=== PATIENT | male | born 1970 | race Caucasian/White ===

== ENCOUNTER 2024-09-13 13:08 | Inpatient (IN) | payer MEDICAID ==
[~2024-09-13] VITALS: Ht 170.2 cm; Wt 80.6 kg
[2024-09-13] MEDS ORDERED: mag hydrox/Alum hydrox/simeth 30ml oral suspension PO PRN (13:50)
[2024-09-13] MEDS ORDERED: loperamide 2mg capsule PO PRN (13:50)
[2024-09-13 16:39] VITALS: RESP 14
[2024-09-13 19:30] VITALS: RESP 16; O2SAT 97
[2024-09-13 20:00] VITALS: BP 127/89; PULSE 101; RESP 16; TEMP 97.2; O2SAT 97
[2024-09-13] MEDS ORDERED: BUPR-94 PO (20:25)
[2024-09-13] MEDS ORDERED: PARO30TA97 PO (20:25)
[2024-09-13] MEDS ORDERED: RISP3TAB11 PO (20:25)
[2024-09-13] MEDS ORDERED: BENZ1TAB97 PO (20:25)
[2024-09-13] MEDS ORDERED: DIVA500T2 PO (20:25)
[2024-09-13] MEDS ORDERED: divalproex sodium 500mg tablet.DR PO SCH (21:42)
[2024-09-13] MEDS: benztropine 1mg tablet PO SCH (22:15)
[2024-09-13] MEDS: divalproex sod 250mg ER (24-hour) tablet PO SCH (22:22)
[2024-09-14 07:00] VITALS: RESP 16; O2SAT 98
[2024-09-14 07:53] VITALS: BP 128/66; PULSE 72; RESP 16; TEMP 97; O2SAT 98
[2024-09-14 07:55] LABS: MEAN PLATELET VOLUME 8.6 FL (7.4-10.4); RED CELL DISTRIBUTION WIDTH 13.5 % (11.5-14.5)
[2024-09-14 08:24] LABS: CHOL/HDL RATIO 3.0 (0.00-4.99); CREATININE 0.92 MG/DL (0.60-1.10); LDL CHOLESTEROL 81 MG/DL (50-100); TOTAL CARBON DIOXIDE 32.1 MMOL/L (24-32); VALPROATE 31 UG/ML (50-100); eCRCL 84 ML/MIN; eGFR 85 ML/MIN
[2024-09-14] MEDS: lactose-reduced food (Ensure Enlive) - 237ml bottle PO SCH (13:39)
--- NOTE | 2024-09-14 15:12 | HISTORY AND PHYSICAL ---
MH History & Physical - Blank History and Physical CHIEF COMPLIANT GRAVELY DISABILITY HISTORY OF PRESENT ILLNESS 54-year-old presenting with auditory and visual hallucinations. Placed on a 5150 for gravely disabled. BIB by brother due to intermittent confusion and suicidal ideations. History of bipolar, anxiety, and depression. Per patient he has been having hallucinations for the past six months. Brother states that it might be due to his recent change on medications. CHART REVIEW Pt is admitted on a 5150 for GD after he was brought into the ED to be evaluated after experiencing experiencing confusion and has not been able to take care of his basic needs such as showering or eating because of this. Denny is unable to state where he could find or obtain food and has lost 8lbs in less than a week.Pt is currently living with his brother and mother in [place]. Pt is on disability and receives around $800.00 per month on SSI. The pt denies having a significant other or children. The pt has a doctor that he sees at [facility] and will f/u with that provider upon discharge. Spoke with Jean Paul, pt's brother, at the request of pt. Jean Paul states that the pt has a history of Bipolar d/o and has experienced a significant increase in mh sx since a medication change in July. Jean Paul states that his brother has basically been catatonic over the last couple of weeks and stopped eating about one week ago. Jean Paul is concerned that the pt may have an underlying health issue and that he was recently referred to for a neuro consult and MRI. Pt appears to have a positive support system and care team. Pt will have these supports as well upon discharge. The pt is a poor historian, this travel writer was unable to obtain much information, however he does appreciate his brother, Jean Paul being able to share information and speak with staff about his symptoms. ASSESSMENT The patient was interviewed in observation room. The patient was actively sitting. The patient endorses "okay." I feel depressed all the time. I can come up with something sometimes to a new myself but I preferred to lay in the bed all the time." "I just be has a bad thoughts and feeling uncomfortable around other people I really have not getting the hang of it." "Yes, I want to ." Patient denies a plan. Denies HI. "I hear band music that started when I was 13 years old." The patient endorses food intake. The patient is stable no acute distress noted. The patient is anxious, disorganized, psychotic with auditory hallucination. Per staff report patient is medication compliant. Per staff report no abnormal behaviors. Will continue daily assessment and adjusting treatment as needed. Closely monitor behavior and response to medication during hospitalization. Discussed treatment plan with patient. ASE/risks and benefits of chosen treatment. He verbalized understanding and consented to treatment. REVIEW OF LABS URINALYSIS NEGATIVE COVID NEGATIVE URINE TOX SCREEN NEGATIVE WBC 4.8 RBC 4.28 HEMOGLOBIN 13.3 HEMATOCRIT 39.4 PLATELET COUNT 127 SODIUM 143 POTASSIUM 3.3 CHLORIDE 104 ANION GAP 7 BUN 7 CREATININE 0.92 eGFR 85 CALCIUM 89.2 ALBUMIN 3.1 TRIGLYCERIDES 71 CHOLESTEROL 155 HDL 52 LDL 81 MENTAL STATUS EXAM APPEARANCE: DISHEVELED. SOILED WEARING GREEN SCRUBS. TALL OBESE MALE. WEARING GLASSES. FULL FACIAL HAIR.LIGHT BROWN HAIR. SPEECH: CIRCUMSTANTIAL, TANGENTIAL EYE CONTACT: NORMAL AFFECT: FLAT MOOD: DEPRESSED, ANXIOUS ORIENTATION IMPAIRMENT: NONE MEMORY IMPAIRMENT: NONE ATTENTION: FULL HALLUCINATIONS: AUDITORY SUICIDALITY: NONE DELUSIONS: PARANOID BEHAVIOR: COOPERATIVE JUDGMENT: POOR INSIGHT: POOR TREATMENT DEPAKOTE ER 500 MG P.O. Q.H.S. PAXIL 60 MG P.O. Q.H.S. RISPERIDONE 3 MG P.O. B.I.D. TRAZODONE 50 MG P.O.Q.H.S. PRN BENZTROPINE 1 MG P.O. B.I.D. THORAZINE 50 MG P.O. Q.6 PRN BENADRYL 50 MG P.O. Q.6 PRN D/C WELLBUTRIN 450 MG P.O. DAILY BY ADMITTING PROVIDER Monitoring by Staff, Milieu, Group, and Individual counseling as needed -- According to the [place] Suicide Assessment the above named patient is on LOS. [id number]-Patient is unable to formulate a plan to safely meet their basic needs of food, clothing, and assisted due to the severity of their mental illness. We are still titrating medications to an effective dose while maintaining a therapeutic environment to prevent decompensation and readmission. Total time spent 120 minutes REVIEW OF Clinical notes [X ] RN notes [X] PCT documentation [X] SW notes Labs [ X] Medications [X] Care trends/care activity [X] Vitals [X] DISCUSSION WITH beef splitter [X] Staff SW [X] Treatment Team [X] DISCHARGE UNSURE AT THIS TIME. DISCHARGE BACK TO HOME WITH HIS BROTHER. Past Psychiatric History Past Psychiatric History THE PATIENT UNABLE TO ANSWER Past Medical History Past Medical History THE PATIENT UNABLE TO ANSWER Past Surgical History Past Surgical History THE PATIENT UNABLE TO ANSWER Past Family History Patient History: FH: kidney disease GRANDFATHER OR GRANDMOTHER (Paternal side of family) Substance Abuse History Substance Abuse History THE PATIENT UNABLE TO ANSWER Personal History Current Living Situation THE PATIENT UNABLE TO ANSWER Marital & Relationship History THE PATIENT UNABLE TO ANSWER Sexual History THE PATIENT UNABLE TO ANSWER Occupational History THE PATIENT UNABLE TO ANSWER Social Activity THE PATIENT UNABLE TO ANSWER Restorationism THE PATIENT UNABLE TO ANSWER Legal History THE PATIENT UNABLE TO ANSWER History THE PATIENT UNABLE TO ANSWER Developmental History Childhood THE PATIENT UNABLE TO ANSWER Assessment/Plan Problems/Diagnosis: (1) Psychosis (2) Mood disorder CODING VISIT-PSYCHIATRY Date of Service: Sep 14, 2024 Billing Provider: HEMA SMITH APRN Psych Common Visit Codes: [id number] INP/OBS CARE (High) Problem Qualifiers (1) Psychosis: HEMA SMITH APRN Sep 14, 2024 15:12
--- NOTE | 2024-09-14 18:52 | HISTORY AND PHYSICAL-Residence ---
History & Physical Providers to Resident Creating Document: RADAMES MARION JOHSUA CHAVEZ History of Present Illness Primary Medical Doctor: No primary care provider Reason for Admit\Complaint: Gravely Disability History of Present Illness Patient is a very poor historian. He is a 54-year-old male past medical history of bipolar disorder, anxiety, depression placed on 5150 hold due to grave disability. The patient states that he has been having hallucinations in the past six months. He denied any other concerns or complaints but reports that he was not comfortable in his previous living conditions and is very comfortable currently in the facility. The patient denied any chest pain, shortness of breath, nausea, vomiting, abdominal pain, constipation, diarrhea, dizziness or syncope. He reports that he has been eating and drinking well since he has been in the hospital. He also was requesting for his brother to be present with him in the hospital. Allergies: Coded Allergies: moxifloxacin (Verified Allergy, Unknown, 09/13/24) Home Medications Home Medications Active Reported Risperdal (Risperidone) 3 Mg Tablet 1 Tab PO BID Paxil (Paroxetine HCl) 30 Mg Tablet 2 Tab PO HS Depakote (Divalproex Sodium) 500 Mg Tablet.dr 500 Mg PO HS Cogentin* (Benztropine Mesylate) 1 Mg Tablet 1 Mg PO BID Past Medical History Past Medical History Bipolar, Anxiety Depression Past Surgical History Surgical History Comment Denies any past surgical history Family History Family History: FH: kidney disease GRANDFATHER OR GRANDMOTHER (Paternal side of family) Past Social History Social History Comment Denies smoking tobacco, drinking alcohol or abusing any other recreational drug ROS ROS Constitutional: No fever, weakness. Denied any recent weight loss. HEENT: No blurring of the vision, No sore throat, epistaxis, tinnitus Cardiovascular: No chest pain/discomfort, palpitations, syncope. No pedal edema Respiratory: No sob, no cough,No hemoptysis Gastrointestinal: No abdominal pain, nausea, vomiting. No diarrhea, constipation, melena. Genitourinary: No frquency, urgency, incontinence, nocturia. No dysuria, hematuria Endocrine: No , polydipsia, polyuria. No heat or cold intolerance Neurologic: No headache, vertigo. No weakness, numbness or tingling of extremities Musculoskeletal: No arthralgias or myalgias Psychiatric: Has been mentioned in HPI. Hematologic: No bleeding or bruises Exam Vitals: Vital Signs Date Time Temp Pulse Resp B/P (MAP) Pulse Ox O2 Delivery O2 Flow Rate FiO2 09/14/24 07:53 97.0 72 16 128/66 (86) 98 09/14/24 07:00 Room Air General: General: Awake , Alert, Oriented, tall obese man,no acute distress Head: Normocephalic with an atraumatic Eyes: Pupils- 3mm, reacting to light, conjunctiva- anicteric Nose and throat: No polyps, septum- normal, no mucosal ulcers Neck: Supple, no lymphadenopathy, no carotid bruit, no raise JVP Respiratory: No use of accessory muscles of respiration, Bilateral normal breath sounds heard. No wheeze, rhochi or creps Cardiac: S1-S2 heard, rythm regular. Abdomen: soft, Bowel sounds heard, No organomegaly. Extremities: no clubbing,no cyanosis, no deformities, peripheral pulses- 2+ Skin: warm and dry Neuro: No focal deficit, gross cranial nerve exam- normal Psychiatry: Depressed, anxious mood , Tagential speech, Poor judgement. Diagnostic Data Last Recorded Lab Results: 09/14/24 0710 09/14/24 0710 Advance Care Planning Advanced Care planning: N/A Additional Plan Auditory and visual hallucination Grave disability History of bipolar disorder continue management as per the psychiatrist. Hypokalemia The patient's potassium is 3.3. Replacing potassium. Monitor the patient's electrolytes. The patient currently does not have any acute medical concerns or complaints. The hospitalist team we will continue to follow the patient during the course of hospitalization. Radames Marion MD Internal Medicine Resident, PGY 1 Date of Service: Sep 14, 2024 Billing Provider: ROCIO PALMER MD Common Visit Codes: [id number] INP/OBS CARE (MOD) RADAMES MARION, RES Sep 14, 2024 18:52 ROCIO PALMER MD Oct 11, 2024 20:37
[2024-09-14 19:48] VITALS: RESP 18; O2SAT 96
[2024-09-14 20:00] VITALS: BP 119/76; PULSE 88; RESP 18; TEMP 97.2; O2SAT 96
[2024-09-15 07:00] VITALS: RESP 16; O2SAT 97
[2024-09-15] MEDS ORDERED: potassium Cl 20 mEq SR tablet PO ONE (07:05)
[2024-09-15] MEDS ORDERED: potassium Cl 20 mEq SR tablet PO STA (07:23)
[2024-09-15 08:33] VITALS: BP 120/74; PULSE 79; RESP 16; TEMP 98; O2SAT 97
[2024-09-15] MEDS: potassium Cl 20 mEq SR tablet PO STA (09:56)
--- NOTE | 2024-09-15 11:32 | PROGRESS NOTE ---
Progress Note Dictate Providers to CC ~ Central Line/PICC still needed: N\A Antibiotic Ordered?: No Objective Vitals Vital Signs Date Time Temp Pulse Resp B/P (MAP) Pulse Ox O2 Delivery O2 Flow Rate FiO2 09/15/24 08:33 98.0 79 16 120/74 (89) 97 Room Air Lab Results: 09/14/24 0710 09/15/24 0901 Problem\Assessment\Plan Problems/Diagnosis: (1) Psychosis (2) Catatonia (3) Mood disorder Psychiatrist's Progress Note Date of Service: Sep 15, 2024 Notes Denny Koenig is a 54-year-old male with a history of bipolar, anxiety, and depression was BIB his brother to [facility] ED with auditory and visual hallucinations, intermittent confusion and SI. He was placed on a 5150 for gravely disabled. Per patient he has been having hallucinations for the past six months. Brother states that it might be due to his recent change on medications. CHART REVIEW Pt is admitted on a 5150 for GD after he was brought into the ED to be evaluated after experiencing experiencing confusion and has not been able to take care of his basic needs such as showering or eating because of this. Denny is unable to state where he could find or obtain food and has lost 8lbs in less than a week. Denny is a an overweight male of average height. He wears glasses and has short disheveled brown hair with full graying facial hair. He is soft spoken and have to have him repeat himself frequently. He is really pleasant and we got him up to a chair. He is not able to sit up on his own. Falls backwards. He initially says he is not hungry for lunch, but then once I have him up in a chair he is willing to eat. He needs assistance from staff. He is disorganized, nonsensical and tangential. He says random thing. 'I feel like I will be a part of an payal soon.' and says something about 'riding a bicycle' and 'taking psyllium mushrooms'. He says he is having AH. 'low murmur of music' then says something randomly and tangential. 'Always keeps it's weapon... see two hands clapping?' then he puts his hands together to clap in a disjointed way. He does say he is here because - He says that when he was home he had not slept for over a week, Now he's sleeping too much. He is unable to tell me when or where he is. He knows who he is. He says randomly 'I have a fear of dogs but why would I be afraid right now-- there's no dogs in here?' Mental Status Eye contact: Poor; Behavior: Cooperative. Confused. Speech: Soft, disorganized. Mood: Pleasant and cooperative, confused. Affect: Flat. Thought process: Significantly disorganized, Circumstantial/Tangential, Seems to be experiencing some Delusions. Mild Paranoid thinking. Thought Content: disorganized. nonsensical. Cognition: A&O X1 to self; Insight: Poor; Judgment: Poor; SI Denies /HI Denies, AH Possibly. Says hearing music, mumbling/VH Possibly. Body stiff and unable to sit up straight without falling backwards. Shuffle gait with transferring. Results Of any Diagn. Testing REVIEW OF LABS URINALYSIS NEGATIVE COVID NEGATIVE URINE TOX SCREEN NEGATIVE WBC 6.52 RBC 3.55 HEMOGLOBIN 11.9 HEMATOCRIT 37.2 PLATELET COUNT 213 SODIUM 129 POTASSIUM 5.0 CHLORIDE 97 ANION GAP 13 BUN 27 CREATININE 0.85 eGFR 97 CALCIUM 8.0 ALBUMIN 3.5 TSH 0.86 Treatment Reviewed the medication requisition-- It looks like he recently was started on Cogentin after an increase of Risperdal and Seroquel reinstated. Looks like patient's meds changed as follows. 2024- Risperdal 2mg +3mg HS, Seroquel ER 300mg two hs, Wellbutrin XL 450mg daily, Paxil 40mg daily. Depakote DR 500mg 3 po hs. March- Risperdal increased 3mg 2 po hs, Other meds same. April- Seroquel ER 200mg hs then became inactive. and Possibly Risperdal 3mg ONE HS? June- INCREASE Risperdal 3mg 2 HS July 12- INCREASE Paxil 30mg TWO Daily. by 08/01- DECREASE Paxil back to 40mg daily... August 07 Cogentin 1mg BID added. and Seroquel ER 200mg Restarted. On 09/01 Paxil 40mg daily ordered as well as on 09/06 Paxil 30mg TWO daily ordered... (Either a change or an error and patient got both prescriptions of Paxil) Then it looks like He may have become more depressed because his Paxil was increased or more of it was taken than he should have had with having two different prescriptions of PAXIL. Which could have made him Manic and not sleep for a week. Patient looks like he could be having some catatonia. I'll make the Ativan a give order. And make med changes as follows.Amantadine ordered to help with the parkinsonion picture which is also indicated with catatonia... INCREASE DEPAKOTE ER 1000 MG P.O. Q.H.S. (was on 1500mg DR) ER tablets have 10%20% less fluctuation in serum concentration than delayed-release (DR) tablets. Divalproex sodium ER and DR tablets are not bioequivalent; increase total daily dose by 10%20% if switching from DR to ER ATIVAN 2 MG P.O. Q.8 PRN DECREASE PAXIL30 MG P.O. Q.H.S. DECREASE RISPERIDONE 4 MG P.O. HS D/C BENZTROPINE 1 MG P.O. B.I.D. TRAZODONE 50 MG P.O. THORAZINE 50 MG P.O. Q.6 PRN BENADRYL 50 MG P.O. Q.6 PRN D/C WELLBUTRIN 450 MG P.O. DAILY on admission Monitoring by Staff, Milieu, Group, and Individual counseling as needed -- According to the [place] Suicide Assessment the above named patient is on LOS. 5250- HOLD -GD- Patient is unable to formulate a plan to safely meet their basic needs of food, clothing, and mcfp due to the severity of their mental illness. We are still titrating medications to an effective dose while maintaining a therapeutic environment to prevent decompensation and readmission. DISCHARGE UNSURE AT THIS TIME. DISCHARGE BACK TO HOME REVIEW OF Clinical notes [X ] RN notes [X] PCT documentation [X] SW notes Labs [ X] Medications [X] Care trends/care activity [X] Vitals [X] DISCUSSION WITH rotor plate washer [X] CODING VISIT-PSYCHIATRY Date of Service: Sep 15, 2024 Billing Provider: ESE RAGSDALE Psych Common Visit Codes: [id number] INP/OBS CARE(High) Problem Qualifiers (1) Psychosis: ESE RAGSDALE Sep 15, 2024 11:32
[2024-09-15 19:00] VITALS: RESP 19; O2SAT 94
[2024-09-15 20:00] VITALS: BP 109/61; PULSE 80; RESP 19; TEMP 90.1; TEMP 98.1; O2SAT 94
[2024-09-15] MEDS: divalproex sod 250mg ER (24-hour) tablet PO SCH (21:15)
[2024-09-16 07:30] VITALS: BP 110/64; PULSE 72; RESP 16; TEMP 96.7; O2SAT 97
[2024-09-16 08:00] VITALS: RESP 19; O2SAT 97
--- NOTE | 2024-09-16 13:25 | PROGRESS NOTE ---
Progress Note Dictate Providers to CC ~ Central Line/PICC still needed: N\A Antibiotic Ordered?: No Objective Vitals Vital Signs Date Time Temp Pulse Resp B/P (MAP) Pulse Ox O2 Delivery O2 Flow Rate FiO2 09/16/24 08:00 19 97 Room Air 09/16/24 07:30 96.7 72 110/64 (79) Lab Results: 09/14/24 0710 09/15/24 0901 Problem\Assessment\Plan Problems/Diagnosis: (1) Psychosis (2) Catatonia (3) Mood disorder Psychiatrist's Progress Note Date of Service: Sep 16, 2024 Notes Denny Koenig is a 54-year-old male with a history of bipolar, anxiety, and depression was BIB his brother to [facility] ED with auditory and visual hallucinations, intermittent confusion and SI. He was placed on a 5150 for gravely disabled. Per patient he has been having hallucinations for the past six months. Brother states that it might be due to his recent change on medications. CHART REVIEW Pt is admitted on a 5150 for GD after he was brought into the ED to be evaluated after experiencing experiencing confusion and has not been able to take care of his basic needs such as showering or eating because of this. Denny is unable to state where he could find or obtain food and has lost 8lbs in less than a week. The pt is a poor historian, this insurance underwriter was unable to obtain much information, however he does appreciate his brother, Jean Paul being able to share information and speak with staff about his symptoms. Up in chair. Still a bit sedated. Jerking a bit. 'worn out.' Slow. He did eat dinner. Trying to take off his shirt. Picking at shirt- Stereotypy. 'took a lot of redirection with dinner and being fed,' per staff. Little bit more alert but still sedated. He did speak a little bit but it is still disorganized and nonsensical. 'I want to be a better Cheondoism'. Mental Status Eye contact: Poor; Behavior: Cooperative. Confused. Speech: Soft, disorganized. Mood: Pleasant and cooperative, confused. Affect: Flat. Thought process: Significantly disorganized, Circumstantial/Tangential, Did not express Paranoid or Delusional thinking. Thought Content: disorganized. nonsensical. Cognition: A&O X1 to self; Insight: Poor; Judgment: Poor; SI Denies /HI Denies, AH Possibly. Says hearing music, mumbling/VH Possibly. Body stiff and unable to sit up straight without falling backwards. Taking two people to transfer. Results Of any Diagn. Testing REVIEW OF LABS URINALYSIS NEGATIVE COVID NEGATIVE URINE TOX SCREEN NEGATIVE WBC 6.52 RBC 3.55 HEMOGLOBIN 11.9 HEMATOCRIT 37.2 PLATELET COUNT 213 SODIUM 129 POTASSIUM 5.0 CHLORIDE 97 ANION GAP 13 BUN 27 CREATININE 0.85 eGFR 97 CALCIUM 8.0 ALBUMIN 3.5 TSH 0.86 Treatment Patient did well in the AM after dose of Ativan 2mg and Amantadine. Up to breakfast and visiting. He started to become more sedated and somnolent as the day went on. RN held his medications in afternoon d/t sedation. He was given a trial of Ativan 1mg which did in fact help him to become more awake and aroused. Able to converse a little but still held eyes closed. It seems perhaps the Amantadine made him more sedated? I will work to decrease medications. ADD Ativan 1mg Q4hr as I do believe it looks like he is having catatonic symptoms. He should get an Head MRI just in case. Some report of possible fall at home? We will do some labs checking kidney fx, infection and ammonia levels. Decrease back to DEPAKOTE ER 500 MG P.O. Q.H.S. ATIVAN 1 MG P.O. Q.4 PRN PAXIL 30 MG P.O. Q.H.S. RISPERIDONE 2 MG P.O. B.I.D. TRAZODONE 50 MG P.O.PRN THORAZINE 50 MG P.O. Q.6 PRN BENADRYL 50 MG P.O. Q.6 PRN Monitoring by Staff, Milieu, Group, and Individual counseling as needed -- According to the [place] Suicide Assessment the above named patient is on LOS. [id number]-Patient is unable to formulate a plan to safely meet their basic needs of food, clothing, and fdc due to the severity of their mental illness. We are still titrating medications to an effective dose while maintaining a therapeutic environment to prevent decompensation and readmission. Total time spent 120 minutes REVIEW OF Clinical notes [X ] RN notes [X] PCT documentation [X] SW notes Labs [ X] Medications [X] Care trends/care activity [X] Vitals [X] DISCUSSION WITH tempering kiln tender [X] DISCHARGE UNSURE AT THIS TIME. DISCHARGE BACK TO HOME WITH HIS BROTHER. CODING VISIT-PSYCHIATRY Date of Service: Sep 16, 2024 Billing Provider: ESE RAGSDALE Psych Common Visit Codes: [id number] INP/OBS CARE(High) Problem Qualifiers (1) Psychosis: ESE RAGSDALE Sep 16, 2024 13:25
[2024-09-16] MEDS ORDERED: divalproex sodium 500mg tablet.DR PO SCH (18:37)
[2024-09-16 19:00] VITALS: RESP 16; O2SAT 96
[2024-09-16 20:00] VITALS: BP 105/77; PULSE 90; RESP 16; TEMP 96.9; O2SAT 96
--- NOTE | 2024-09-16 20:50 | PROGRESS NOTE ---
Daily Progress Note Providers to CC ~ Antibiotic Timeout Antibiotic Ordered?: No Subjective This is the hospitalist progress note on patients hospitalized at [facility]. The patient is completely obtunded asleep charge nurse jose tried to awake and the patient and he briefly moved his upper extremities and then went back to sleep. Huey informs me that there has been a change in medication with the patient. Objective Vital Signs Date Time Temp Pulse Resp B/P (MAP) Pulse Ox O2 Delivery O2 Flow Rate FiO2 09/16/24 08:00 19 97 Room Air 09/16/24 07:30 96.7 72 110/64 (79) Result Diagram: 09/14/24 0710 09/15/24 0901 Gen. No acute distress obtunded Lungs clear to ascultation bilaterally, no wheezes rales or rhonchi appreciated Heart normal sinus rhythm no murmurs rubs or clicks noted Abdomen soft nontender bowel sounds are normoactive Lower extremities no clubbing cyanosis, nor edema appreciated bilaterally Problem\Assessment\Plan Problems/Diagnosis: (1) Psychosis Grave disability History of bipolar disorder continue management as per the psychiatrist. Hypokalemia The patient's potassium is 3.3. Replacing potassium. Monitor the patient's electrolytes. The patient was completely obtunded due to a recent medication change. The hospitalist team we will continue to follow the patient during the course of hospitalization Date of Service: Sep 16, 2024 Billing Provider: MARISOL SHAFFER DO Common Visit Codes: [id number] INP/OBS CARE(LOW) Problem Qualifiers (1) Psychosis: MARISOL SHAFFER DO Sep 16, 2024 20:50
[2024-09-16] MEDS: divalproex sodium 500mg tablet.DR PO SCH (21:13)
[2024-09-16 21:47] LABS: MEAN PLATELET VOLUME 8.4 FL (7.4-10.4); RED CELL DISTRIBUTION WIDTH 13.7 % (11.5-14.5)
[2024-09-16 21:56] LABS: CREATININE 0.89 MG/DL (0.60-1.10); TOTAL CARBON DIOXIDE 34.6 MMOL/L (24-32); eCRCL 87 ML/MIN; eGFR 88 ML/MIN
[2024-09-17 07:09] VITALS: BP 113/66; PULSE 68; RESP 16; TEMP 97.2; O2SAT 96
[2024-09-17 08:00] VITALS: RESP 16; O2SAT 96
[2024-09-17] MEDS: magnesium hydroxide 30ml (MOM) UD suspension PO PRN (11:06)
--- NOTE | 2024-09-17 13:38 | PROGRESS NOTE ---
Progress Note Dictate Providers to CC ~ Central Line/PICC still needed: N\A Antibiotic Ordered?: No MRSA Education MRSA Education Provided to pt: No Objective Vitals Vital Signs Date Time Temp Pulse Resp B/P (MAP) Pulse Ox O2 Delivery O2 Flow Rate FiO2 09/17/24 08:00 16 96 Room Air 09/17/24 07:09 97.2 68 113/66 (82) Lab Results: 09/16/24213509/16/242135 Problem\Assessment\Plan Problems/Diagnosis: (1) Psychosis (2) Mood disorder Psychiatrist's Progress Note Date of Service: Sep 17, 2024 Notes CHART REVIEW Pancho is admitted on a 5150 for GD after he was brought into the ED to be evaluated after experiencing experiencing confusion and has not been able to take care of his basic needs such as showering or eating because of this. Denny is unable to state where he could find or obtain food and has lost 8lbs in less than a week.Pancho is currently living with his brother and mother in [place]. Pancho is on disability and receives around $800.00 per month on SSI. The pt denies having a significant other or children. The pt has a doctor that he sees at [facility] and will f/u with that provider upon discharge. Spoke with Jean Paul, pt's brother, at the request of pt. Jean Paul states that the pt has a history of Bipolar d/o and has experienced a significant increase in mh sx since a medication change in July. Jaen Paul states that his brother has basically been catatonic over the last couple of weeks and stopped eating about one week ago. Jean Paul is concerned that the pt may have an underlying health issue and that he was recently referred to for a neuro consult and MRI. Pt appears to have a positive support system and care team. Pt will have these supports as well upon discharge. The pt is a poor historian, this telegraphic typewriter installer was unable to obtain much information, however he does appreciate his brother, Jean Paul being able to share information and speak with staff about his symptoms. ASSESSMENT The patient was unable to participate in interview The patient was actively r esting with his eyes closed. The patient was unable to stay awake to answer questions. MRI has been ordered. The patient is stable no acute distress noted. Per staff report patient is medication compliant. Per staff report the patient is requiring assistance with ADLs, feeding, incontinent care. Will continue daily assessment and adjusting treatment as needed. Closely monitor behavior and response to medication during hospitalization. Results Of any Diagn. Testing REVIEW OF LABS URINALYSIS NEGATIVE COVID NEGATIVE URINE TOX SCREEN NEGATIVE WBC 4.8 RBC 4.28 HEMOGLOBIN 13.3 HEMATOCRIT 39.4 PLATELET COUNT 127 SODIUM 143 POTASSIUM 3.3 CHLORIDE 104 ANION GAP 7 BUN 7 CREATININE 0.92 eGFR 85 CALCIUM 89.2 ALBUMIN 3.1 TRIGLYCERIDES 71 CHOLESTEROL 155 HDL 52 LDL 81 Appearnace: Other (DISHEVELED. SOILED WEARING GREEN SCRUBS. TALL OBESE MALE. WEARING GLASSES. FULL FACIAL HAIR.LIGHT BROWN HAIR.) Behavior: Other (LETHARGIC) Insight: Poor Judgment: Poor Treatment DEPAKOTE ER 500 MG P.O. Q.H.S. Decrease ATIVAN 1 MG P.O. BID PAXIL 30 MG P.O. Q.H.S. RISPERIDONE 2 MG P.O. B.I.D. TRAZODONE 50 MG P.O. Q.H.S. PRN BENZTROPINE 1 MG P.O. B.I.D. THORAZINE 50 MG P.O. Q.6 PRN BENADRYL 50 MG P.O. Q.6 PRN Monitoring by Staff, Milieu, Group, and Individual counseling as needed -- According to the [place] Suicide Assessment the above named patient is on LOS. -Patient is unable to formulate a plan to safely meet their basic needs of food, clothing, and prison due to the severity of their mental illness. We are still titrating medications to an effective dose while maintaining a therapeutic environment to prevent decompensation and readmission. Total time spent 45 minutes REVIEW OF Clinical notes [X ] RN notes [X] PCT documentation [X] SW notes Labs [ X] Medications [X] Care trends/care activity [X] Vitals [X] DISCUSSION WITH regulatory auditor [X] Staff SW [X] Treatment Team [X] Discharge UNSURE AT THIS TIME. DISCHARGE BACK TO HOME WITH HIS BROTHER. CODING VISIT-PSYCHIATRY Date of Service: Sep 17, 2024 Billing Provider: HEMA SMITH APRN Psych Common Visit Codes: [id number] INP/OBS CARE(Mod) Problem Qualifiers (1) Psychosis: HEMA SMITH APRN Sep 17, 2024 13:38
[2024-09-17 19:00] VITALS: RESP 14; O2SAT 97
[2024-09-17 20:00] VITALS: BP 105/77; PULSE 90; RESP 16; TEMP 96.9; O2SAT 96
--- NOTE | 2024-09-17 21:30 | RADIOLOGY REPORT ---
EXAM: MR MRI HEAD HISTORY: Confusion COMPARISON: None TECHNIQUE: MRI was performed utilizing multiple appropriate imaging planes and pulse sequences. FINDINGS: Motion artifact limits numerous sequences. No definite infarct. IMPRESSION: 1. Non- diagnostic examination due to motion artifact
[2024-09-18 07:00] VITALS: BP 104/62; PULSE 71; RESP 14; TEMP 97.4; O2SAT 95
--- NOTE | 2024-09-18 15:37 | PROGRESS NOTE ---
Progress Note Dictate Providers to CC ~ Central Line/PICC still needed: N\\A Antibiotic Ordered?: No MRSA Education MRSA Education Provided to pt: No Objective Vitals Vital Signs Date Time Temp Pulse Resp B/P (MAP) Pulse Ox O2 Delivery O2 Flow Rate FiO2 09/18/24 07:00 97.4 71 14 104/62 (76) 95 Room Air Lab Results: 09/16/24213509/16/242135 Problem\\Assessment\\Plan Problems/Diagnosis: (1) Psychosis (2) Mood disorder Psychiatrist's Progress Note Date of Service: Sep 18, 2024 Notes CHART REVIEW Pancho is admitted on a 5150 for GD after he was brought into the ED to be evaluated after experiencing experiencing confusion and has not been able to take care of his basic needs such as showering or eating because of this. Denny is unable to state where he could find or obtain food and has lost 8lbs in less than a week.Pancho is currently living with his brother and mother in [place]. Pancho is on disability and receives around $800.00 per month on SSI. The pt denies having a significant other or children. The pt has a doctor that he sees at [facility] and will f/u with that provider upon discharge. Spoke with Jean Paul, pt's brother, at the request of pt. Jean Paul states that the pt has a history of Bipolar d/o and has experienced a significant increase in mh sx since a medication change in July. Jean Paul states that his brother has basically been catatonic over the last couple of weeks and stopped eating about one week ago. Jean Paul is concerned that the pt may have an underlying health issue and that he was recently referred to for a neuro consult and MRI. Pt appears to have a positive support system and care team. Pt will have these supports as well upon discharge. The pt is a poor historian, this bid writer was unable to obtain much information, however he does appreciate his brother, Jean Paul being able to share information and speak with staff about his symptoms. ASSESSMENT The patient was unable to participate in interview The patient was actively resting in bed with his eyes closed. The patient endorses "I am doing fine." "I am making the the characters the goes with the constitution party line." The patient is stable no acute distress noted. The patient presents as disorganized, tangential speech, and disengaged during session. Per staff report patient is medication compliant. Per staff report the patient is still requiring assistance with ADLs, feeding, incontinent care, ambulation. The patient is currently wheelchair-bound. Will continue daily assessment and adjusting treatment as needed. Closely monitor behavior and response to medication during hospitalization. Collateral received from patient's brother Jean Paul with the patient's consent. An endorses that the patient has shown a decline since August in his cognition, hallucinating, imbalance and he started becoming weaker. Jean Paul endorses before August the patient was able to ambulate and provide self care. Jean Paul endorses that the patient had a referral to see a neurologist that was put in by Dr. Chaidez, psychiatrist but when patient was last seen by Dr. Chaidez last Tuesday the patient was expressing thoughts of harming himself with increased confusion. Dr. Chaidez asked that patient be transferred to inpatient psychiatry. MRI was attempted but patient was unable to tolerate scan. We will medicate patient and reschedule MRI. Results Of any Diagn. Testing REVIEW OF LABS URINALYSIS NEGATIVE COVID NEGATIVE URINE TOX SCREEN NEGATIVE WBC 4.8 RBC 4.28 HEMOGLOBIN 13.3 HEMATOCRIT 39.4 PLATELET COUNT 127 SODIUM 143 POTASSIUM 3.3 CHLORIDE 104 ANION GAP 7 BUN 7 CREATININE 0.92 eGFR 85 CALCIUM 89.2 ALBUMIN 3.1 TRIGLYCERIDES 71 CHOLESTEROL 155 HDL 52 LDL 81 Appearnace: Disheveled (DISHEVELED. SOILED WEARING GREEN SCRUBS. TALL OBESE MALE. WEARING GLASSES. FULL FACIAL HAIR.LIGHT BROWN HAIR.) Speech: Tangential Eye Contact: Other (INTERMITTENT) Motor Activity: Normal Affect: Constricted Orientation Impairment: Person Attention: Distracted Hallucinations: None Other: None Suicidality: None Homicidality: None Delusions: None Behavior: Cooperative, Other (CONFUSED) Insight: Poor Judgment: Poor Treatment DEPAKOTE ER 500 MG P.O. Q.H.S. Increase ATIVAN 1 MG P.O. TID PAXIL 30 MG P.O. Q.H.S. Discontinue RISPERIDONE 2 MG P.O. B.I.D. TRAZODONE 50 MG P.O. Q.H.S. PRN BENZTROPINE 1 MG P.O. B.I.D. THORAZINE 50 MG P.O. Q.6 PRN BENADRYL 50 MG P.O. Q.6 PRN Monitoring by Staff, Milieu, Group, and Individual counseling as needed -- According to the [place] Suicide Assessment the above named patient is on LOS. [id number]-Patient is unable to formulate a plan to safely meet their basic needs of food, clothing, and halfway due to the severity of their mental illness. We are still titrating medications to an effective dose while maintaining a therapeutic environment to prevent decompensation and readmission. Total time spent 45 minutes REVIEW OF Clinical notes [X ] RN notes [X] PCT documentation [X] SW notes Labs [ X] Medications [X] Care trends/care activity [X] Vitals [X] DISCUSSION WITH [employer] systems administrator [X] Staff SW [X] Treatment Team [X] Discharge UNSURE AT THIS TIME. DISCHARGE BACK TO HOME WITH HIS BROTHER. CODING VISIT-PSYCHIATRY Date of Service: Sep 18, 2024 Billing Provider: HEMA SMITH APRN Psych Common Visit Codes: [id number] INP/OBS CARE(Mod) Problem Qualifiers (1) Psychosis: HEMA SMITH APRN Sep 18, 2024 15:37
[2024-09-18 19:06] VITALS: RESP 16; O2SAT 96
[2024-09-18 19:10] VITALS: BP 110/64; PULSE 83; RESP 16; TEMP 97.5; O2SAT 96
--- NOTE | 2024-09-18 19:35 | PROGRESS NOTE ---
Daily Progress Note Providers to CC ~ Antibiotic Timeout Antibiotic Ordered?: No Subjective This is the hospitalist progress note on patients hospitalized at [facility] [place] [facility]. The patient has no acute medical complaints or concerns and none were voiced by nursing staff. Objective Vital Signs Date Time Temp Pulse Resp B/P (MAP) Pulse Ox O2 Delivery O2 Flow Rate FiO2 09/18/24 19:10 97.5 83 16 110/64 (79) 96 Room Air Result Diagram: 09/16/24213509/16/242135 Gen. No acute distress obtunded Lungs clear to ascultation bilaterally, no wheezes rales or rhonchi appreciated Heart normal sinus rhythm no murmurs rubs or clicks noted Abdomen soft nontender bowel sounds are normoactive Lower extremities no clubbing cyanosis, nor edema appreciated bilaterally Problem\Assessment\Plan Problems/Diagnosis: (1) Psychosis Grave disability History of bipolar disorder continue management as per the psychiatrist. Hypokalemia The patient's potassium is 3.3. Replacing potassium. Monitor the patient's electrolytes. Resolved The patient voiced no acute medical complaints or concerns and none were voiced by nursing staff either The hospitalist team we will continue to follow the patient during the course of hospitalization Date of Service: Sep 18, 2024 Billing Provider: MARISOL SHAFFER DO Common Visit Codes: [id number] INP/OBS CARE(LOW) Problem Qualifiers (1) Psychosis: MARISOL SHAFFER DO Sep 18, 2024 19:35
[2024-09-19 07:00] VITALS: RESP 15; O2SAT 97
[2024-09-19 08:00] VITALS: BP 115/71; PULSE 76; RESP 15; TEMP 97.2; O2SAT 97
--- NOTE | 2024-09-19 10:32 | PROGRESS NOTE ---
Progress Note Dictate Providers to CC ~ Central Line/PICC still needed: N\A Antibiotic Ordered?: No MRSA Education MRSA Education Provided to pt: No Objective Vitals Vital Signs Date Time Temp Pulse Resp B/P (MAP) Pulse Ox O2 Delivery O2 Flow Rate FiO2 09/18/24 19:10 97.5 83 16 110/64 (79) 96 Room Air Lab Results: 09/16/24213509/16/242135 Problem\Assessment\Plan Problems/Diagnosis: (1) Psychosis (2) Mood disorder Psychiatrist's Progress Note Date of Service: Sep 19, 2024 Time of Evaluation: 16:37 Notes CHART REVIEW Pancho is admitted on a 5150 for GD after he was brought into the ED to be evaluated after experiencing experiencing confusion and has not been able to take care of his basic needs such as showering or eating because of this. Denny is unable to state where he could find or obtain food and has lost 8lbs in less than a week.Pancho is currently living with his brother and mother in [place]. Pancho is on disability and receives around $800.00 per month on SSI. The pt denies having a significant other or children. The pt has a doctor that he sees at [facility] and will f/u with that provider upon discharge. Spoke with Jean Paul, pt's brother, at the request of pt. Jean Paul states that the pt has a history of Bipolar d/o and has experienced a significant increase in mh sx since a medication change in July. Jean Paul states that his brother has basically been catatonic over the last couple of weeks and stopped eating about one week ago. Jean Paul is concerned that the pt may have an underlying health issue and that he was recently referred to for a neuro consult and MRI. Pt appears to have a positive support system and care team. Pt will have these supports as well upon discharge. The pt is a poor historian, this chart writer was unable to obtain much information, however he does appreciate his brother, Jean Paul being able to share information and speak with staff about his symptoms. ASSESSMENT The patient was unable to participate in interview due to receiving IM Ativan in order to participating MRI. The patient was actively resting in bed with his eyes closed. The patient is stable no acute distress noted. Per staff report patient is medication compliant. Per staff report earlier in the shift the patient did not require as much assistance with transferring into wheelchair as he did yesterday. Will continue daily assessment and adjusting treatment as needed. Closely monitor behavior and response to medication during hospitalization. Despite the patient given IM Ativan were still unable to get a clear MRI. Results are pending. We will follow up with medical tomorrow patient may need ketamine in order to obtain MRI. Results Of any Diagn. Testing REVIEW OF LABS URINALYSIS NEGATIVE COVID NEGATIVE URINE TOX SCREEN NEGATIVE WBC 4.8 RBC 4.28 HEMOGLOBIN 13.3 HEMATOCRIT 39.4 PLATELET COUNT 127 SODIUM 143 POTASSIUM 3.3 CHLORIDE 104 ANION GAP 7 BUN 7 CREATININE 0.92 eGFR 85 CALCIUM 89.2 ALBUMIN 3.1 TRIGLYCERIDES 71 CHOLESTEROL 155 HDL 52 LDL 81 Insight: Poor Judgment: Poor Treatment DEPAKOTE ER 500 MG P.O. Q.H.S. ATIVAN 1 MG P.O. TID PAXIL 30 MG P.O. Q.H.S. TRAZODONE 50 MG P.O. Q.H.S. PRN BENZTROPINE 1 MG P.O. B.I.D. THORAZINE 50 MG P.O. Q.6 PRN BENADRYL 50 MG P.O. Q.6 PRN Monitoring by Staff, Milieu, Group, and Individual counseling as needed -- According to the [place] Suicide Assessment the above named patient is on LOS. [id number]-Patient is unable to formulate a plan to safely meet their basic needs of food, clothing, and prison due to the severity of their mental illness. We are still titrating medications to an effective dose while maintaining a therapeutic environment to prevent decompensation and readmission. Total time spent 40 minutes REVIEW OF Clinical notes [X ] RN notes [X] PCT documentation [X] SW notes Labs [ X] Medications [X] Care trends/care activity [X] Vitals [X] DISCUSSION WITH senior clinical consultant [X] Staff SW [X] Treatment Team [X] Discharge UNSURE AT THIS TIME. DISCHARGE BACK TO HOME WITH HIS BROTHER. CODING VISIT-PSYCHIATRY Date of Service: Sep 19, 2024 Billing Provider: HEMA SMITH APRN Psych Common Visit Codes: [id number] INP/OBS CARE(Mod) Problem Qualifiers (1) Psychosis: HEMA SMITH APRN Sep 19, 2024 10:32
[2024-09-19] MEDS: diazepam inj 5 MG/ML inj. IV ONE (14:16)
--- NOTE | 2024-09-19 15:20 | RADIOLOGY REPORT ---
MEDICAL CENTER EXAMINATION: MR MRI HEAD INDICATION: CONFUSION COMPARISON: MR MRI HEAD on DOS: 09/17/24 TECHNIQUE: Multiplanar, multisequence magnetic resonance imaging of the brain was performed without the use of i ntravenous contrast. FINDINGS: Essentially nondiagnostic examination due to extensive motion artifact. Repeat imaging is recommende d. IMPRESSION: Essentially nondiagnostic examination due to extensive motion artifact. Repeat imaging is recommende d.
[2024-09-19 19:00] VITALS: RESP 16; O2SAT 95
[2024-09-19 20:00] VITALS: BP 116/71; PULSE 66; RESP 16; TEMP 97.7; O2SAT 95
[2024-09-20 07:00] VITALS: RESP 12; O2SAT 94
[2024-09-20 08:00] VITALS: BP 95/57; PULSE 64; RESP 12; TEMP 97; O2SAT 94
--- NOTE | 2024-09-20 15:55 | PROGRESS NOTE ---
Progress Note Dictate Providers to CC ~ Central Line/PICC still needed: N\\A Antibiotic Ordered?: No MRSA Education MRSA Education Provided to pt: No Objective Vitals Vital Signs Date Time Temp Pulse Resp B/P (MAP) Pulse Ox O2 Delivery O2 Flow Rate FiO2 09/20/24 08:00 97.0 64 12 95/57 (70) 94 Room Air Lab Results: 09/16/24213509/16/242135 Problem\\Assessment\\Plan Problems/Diagnosis: (1) Psychosis (2) Mood disorder Psychiatrist's Progress Note Date of Service: Sep 20, 2024 Notes CHART REVIEW Pancho is admitted on a 5150 for GD after he was brought into the ED to be evaluated after experiencing experiencing confusion and has not been able to take care of his basic needs such as showering or eating because of this. Denny is unable to state where he could find or obtain food and has lost 8lbs in less than a week.Pancho is currently living with his brother and mother in [place]. Pancho is on disability and receives around $800.00 per month on SSI. The pt denies having a significant other or children. The pt has a doctor that he sees at [facility] and will f/u with that provider upon discharge. Spoke with Jean Paul, pt's brother, at the request of pt. Jean Paul states that the pt has a history of Bipolar d/o and has experienced a significant increase in mh sx since a medication change in July. Jean Paul states that his brother has basically been catatonic over the last couple of weeks and stopped eating about one week ago. Jean Paul is concerned that the pt may have an underlying health issue and that he was recently referred to for a neuro consult and MRI. Pt appears to have a positive support system and care team. Pt will have these supports as well upon discharge. The pt is a poor historian, this senior underwriter was unable to obtain much information, however he does appreciate his brother, Jean Paul being able to share information and speak with staff about his symptoms. ASSESSMENT The patient was interviewed in observation room. The patient was actively w alking in hallway with staff. The patient endorses "okay." "I am here because something is going on with my brain." Denies SI.Denies HI. Denies AVH. The patient endorses food intake. The patient is stable no acute distress noted. The patient presents as alert, but disorganized, confused (unable to state month date year place the patient was able to state his mom and brothers name) and distracted. Per staff report patient is medication compliant. Per staff report no abnormal behaviors. Per staff report the patient said himself today but consumed <50 of meal. Per staff report patient is still requiring moderate assistance with ambulation. Will continue daily assessment and adjusting treatment as needed. Closely monitor behavior and response to medication during hospitalization. Results Of any Diagn. Testing REVIEW OF LABS URINALYSIS NEGATIVE COVID NEGATIVE URINE TOX SCREEN NEGATIVE WBC 4.8 RBC 4.28 HEMOGLOBIN 13.3 HEMATOCRIT 39.4 PLATELET COUNT 127 SODIUM 143 POTASSIUM 3.3 CHLORIDE 104 ANION GAP 7 BUN 7 CREATININE 0.92 eGFR 85 CALCIUM 89.2 ALBUMIN 3.1 TRIGLYCERIDES 71 CHOLESTEROL 155 HDL 52 LDL 81 Appearnace: Other Speech: Tangential, Other (CIRCUMSTANTIAL) Eye Contact: Normal Motor Activity: Normal Affect: Full Orientation Impairment: Place, Person, Time Memory Impairment: Short-Term Attention: Normal Hallucinations: None Other: None Suicidality: None Homicidality: None Delusions: None Behavior: Cooperative Insight: Poor Judgment: Poor Treatment DEPAKOTE ER 500 MG P.O. Q.H.S. ATIVAN 1 MG P.O. TID PAXIL 30 MG P.O. Q.H.S. TRAZODONE 50 MG P.O. Q.H.S. PRN BENZTROPINE 1 MG P.O. B.I.D. THORAZINE 50 MG P.O. Q.6 PRN BENADRYL 50 MG P.O. Q.6 PRN Monitoring by Staff, Milieu, Group, and Individual counseling as needed -- According to the [place] Suicide Assessment the above named patient is on -Patient is unable to formulate a plan to safely meet their basic needs of food, clothing, and usp due to the severity of their mental illness. We are still titrating medications to an effective dose while maintaining a therapeutic environment to prevent decompensation and readmission. Total time spent 35 minutes REVIEW OF Clinical notes [X ] RN notes [X] PCT documentation [X] SW notes Labs [ X] Medications [X] Care trends/care activity [X] Vitals [X] DISCUSSION WITH product safety administrator [X] Staff SW [X] Treatment Team [X] Discharge UNSURE AT THIS TIME. DISCHARGE BACK TO HOME WITH HIS BROTHER. CODING VISIT-PSYCHIATRY Date of Service: Sep 20, 2024 Billing Provider: HEMA SMITH APRN Psych Common Visit Codes: [id number] INP/OBS CARE(Mod) Problem Qualifiers (1) Psychosis: HEMA SMITH APRN Sep 20, 2024 15:55
[2024-09-20] MEDS ORDERED: mineral oil 133ml enema RC PRN (17:10)
[2024-09-20] MEDS ORDERED: bisacodyl 10mg suppository rectal RC PRN (17:10)
[2024-09-20] MEDS: bisacodyl 10mg suppository rectal RC STA (17:40)
[2024-09-20] MEDS: magnesium citrate 296ml oral solution PO ONE (17:49)
--- NOTE | 2024-09-20 19:06 | PROGRESS NOTE- Residence ---
Progress Note - Resident Providers to CC Resident Creating Document: PEDRO LARA, RES ~ Antibiotic Timeout Antibiotic Ordered?: No Subjective Patient has been evaluated in mental health unit. The patient currently asymptomatic. Denies any chest pain, shortness of breath, palpitations, urinary or intestinal symptoms. Objective Vital Signs Date Time Temp Pulse Resp B/P (MAP) Pulse Ox O2 Delivery O2 Flow Rate FiO2 09/20/24 08:00 97.0 64 12 95/57 (70) 94 Room Air Physical exam: General: Well alert, well oriented, not confused, not agitated, not in acute distress, well cooperated during the physical. HEENT: Conjunctive are pink, sclerae clear, no icterus, pupil is equal in both sides, reactive to light, no ear discharge, no pharyngeal erythema or an edema. Neck: Supple, no JVD, no lymphadenopathy and thyromegaly. Chest: Equal air entry on both lungs, no additional sounds no rhonchi no wheezing at the moment. Cardiovascular: S1-S2 regular sinus rhythm and, regular rate, no gallops, no rubs, no murmurs Abdomen: No visible peristalsis, Bowel sounds present on auscultation, soft, nontender, no guarding, no rigidity Extremities: No obvious deformities, no pitting edema bilaterally, capillary refill intact, peripheral pulsations are intact on both sides Central Nervous System: No focal neurological deficits, no motor or sensory weakness in all 4 extremities, could move all 4 extremities, 2+ deep tendon reflexes, negative Babinski. Musculoskeletal: No joint swelling, deformities, inflammations, and no scoliosis and back tenderness Skin: Warm and dry. Result Diagram: 09/16/24213509/16/242135 Assessment Assessment 54-year-old male patient admitted to mental health unit due to auditory and visual hallucinations, confusion and suicidal ideations. Placed on 5150 for gravely disabled. Plan Plan Schizophrenia: Psychosis: Graft disability: History of bipolar disorder: On chlorpromazine, hydroxyzine, paroxetine, trazodone. Continue management as per psychiatrist. Constipation: MiraLax 17 g HS. Dulcolax 10 mg TID PRN suppository. Disposition: Hospitalist team will continue to monitor the patient. Pedro Segundo Internal Medicine Resident [facility] Date of Service: Sep 20, 2024 Billing Provider: MING SOSA MD Common Visit Codes: [id number] INP/OBS CARE(MOD) PEDRO LARA, RES Sep 20, 2024 19:06 MING SOSA MD Sep 21, 2024 06:13
[2024-09-20 20:00] VITALS: PULSE 66; RESP 16; TEMP 97.7; O2SAT 97
[2024-09-20] MEDS ORDERED: lactulose 20gm/30ml cup PO SCH (20:00)
[2024-09-20 22:05] VITALS: BP 119/75; PULSE 79; RESP 16; TEMP 97.1; O2SAT 95
[2024-09-20] MEDS: polyethylene glycol 3350 17gm powd pack PO SCH (22:06)
[2024-09-21 07:00] VITALS: RESP 14; O2SAT 96
[2024-09-21 08:00] VITALS: BP 105/62; PULSE 68; RESP 14; TEMP 97.9; O2SAT 96
--- NOTE | 2024-09-21 16:01 | PROGRESS NOTE ---
Progress Note Dictate Providers to CC ~ Central Line/PICC still needed: N\\A Antibiotic Ordered?: No MRSA Education MRSA Education Provided to pt: No Objective Vitals Vital Signs Date Time Temp Pulse Resp B/P (MAP) Pulse Ox O2 Delivery O2 Flow Rate FiO2 09/21/24 08:00 97.9 68 14 105/62 (76) 96 Room Air Problem\\Assessment\\Plan Problems/Diagnosis: (1) Psychosis (2) Mood disorder Psychiatrist's Progress Note Date of Service: Sep 21, 2024 Notes CHART REVIEW Pancho is admitted on a 5150 for GD after he was brought into the ED to be evaluated after experiencing experiencing confusion and has not been able to take care of his basic needs such as showering or eating because of this. Denny is unable to state where he could find or obtain food and has lost 8lbs in less than a week.Pancho is currently living with his brother and mother in [place]. Pancho is on disability and receives around $800.00 per month on SSI. The pt denies having a significant other or children. The pt has a doctor that he sees at [facility] and will f/u with that provider upon discharge. Spoke with Jean Paul, pt's brother, at the request of pt. Jean Paul states that the pt has a history of Bipolar d/o and has experienced a significant increase in mh sx since a medication change in July. Jean Paul states that his brother has basically been catatonic over the last couple of weeks and stopped eating about one week ago. Jean Paul is concerned that the pt may have an underlying health issue and that he was recently referred to for a neuro consult and MRI. Pt appears to have a positive support system and care team. Pt will have these supports as well upon discharge. The pt is a poor historian, this sheet writer was unable to obtain much information, however he does appreciate his brother, Jean Paul being able to share information and speak with staff about his symptoms. ASSESSMENT The patient was interviewed in observation room. The patient was actively walking in hallway with staff. The patient endorses "okay." The patient endorses no worsening mental health symptoms. Denies SI.Denies HI. Denies AVH. The patient endorses adequate sleep and food intake. The patient is stable no acute distress noted. The patient presents as disorganized, cooperative, and disengaged. Per staff report patient is medica tion compliant. Per staff report no abnormal behaviors. Per staff report the patient said himself today but consumed <50 of meal. Per staff report patient is still requiring moderate assistance with ambulation. Will continue daily assessment and adjusting treatment as needed. Closely monitor behavior and response to medication during hospitalization. Results Of any Diagn. Testing REVIEW OF LABS URINALYSIS NEGATIVE COVID NEGATIVE URINE TOX SCREEN NEGATIVE WBC 4.8 RBC 4.28 HEMOGLOBIN 13.3 HEMATOCRIT 39.4 PLATELET COUNT 127 SODIUM 143 POTASSIUM 3.3 CHLORIDE 104 ANION GAP 7 BUN 7 CREATININE 0.92 eGFR 85 CALCIUM 89.2 ALBUMIN 3.1 TRIGLYCERIDES 71 CHOLESTEROL 155 HDL 52 LDL 81 Appearnace: Other Speech: Impoverished Eye Contact: Normal Motor Activity: Normal Affect: Full Orientation Impairment: Place, Person, Time Memory Impairment: Short-Term, Long-term Attention: Normal Hallucinations: Auditory Other: None Suicidality: None Homicidality: None Delusions: None Behavior: Cooperative Insight: Poor Judgment: Poor Treatment DEPAKOTE ER 500 MG P.O. Q.H.S. ATIVAN 1 MG P.O. TID PAXIL 30 MG P.O. Q.H.S. TRAZODONE 50 MG P.O. Q.H.S. PRN BENZTROPINE 1 MG P.O. B.I.D. THORAZINE 50 MG P.O. Q.6 PRN BENADRYL 50 MG P.O. Q.6 PRN Monitoring by Staff, Milieu, Group, and Individual counseling as needed -- According to the [place] Suicide Assessment the above named patient is on LOS. [id number]-Patient is unable to formulate a plan to safely meet their basic needs of food, clothing, and jail due to the severity of their mental illness. We are still titrating medications to an effective dose while maintaining a therapeutic environment to prevent decompensation and readmission. Total time spent 45 minutes REVIEW OF Clinical notes [X ] RN notes [X] PCT documentation [X] SW notes Labs [ X] Medications [X] Care trends/care activity [X] Vitals [X] DISCUSSION WITH paid search specialist [X] Staff SW [X] Treatment Team [X] Discharge UNSURE AT THIS TIME. DISCHARGE BACK TO HOME WITH HIS BROTHER. CODING VISIT-PSYCHIATRY Date of Service: Sep 21, 2024 Billing Provider: HEMA SMITH APRN Psych Common Visit Codes: [id number] INP/OBS CARE(Mod) Problem Qualifiers (1) Psychosis: HEMA SMITH APRN Sep 21, 2024 16:01
[2024-09-21 19:00] VITALS: RESP 15; O2SAT 94
[2024-09-21 20:00] VITALS: BP 109/61; PULSE 67; RESP 15; TEMP 97; O2SAT 94
[2024-09-22 07:00] VITALS: RESP 14; O2SAT 100
[2024-09-22 08:00] VITALS: BP 110/66; PULSE 75; RESP 14; TEMP 98.2; O2SAT 100
--- NOTE | 2024-09-22 18:28 | PROGRESS NOTE ---
Daily Progress Note Providers to CC ~ Antibiotic Timeout Antibiotic Ordered?: No Subjective Patient was seen in presence of mental health nursing staff he looks comfortable cooperated well. Patient is waiting to get the MRI of head done as per charge nurse. Objective Vital Signs Date Time Temp Pulse Resp B/P (MAP) Pulse Ox O2 Delivery O2 Flow Rate FiO2 09/22/24 08:00 98.2 75 14 110/66 (81) 100 Room Air General-patient not in any acute distress, alert awake , age-appropriate, looks comfortable HEENT-atraumatic normocephalic, neck supple without elevated JVD, no thyromegaly or carotid bruit. No lymphadenopathy bilaterally. Eyes-no icterus or pallor seen in eyes Chest-clear to auscultation bilaterally, breathing nonlabored no tachypnea, no w heezing, no crepitation, no crackles. Heart-S1-S2 normal, regular heart rate no murmur Abdomen bowel sounds positive on auscultation, soft nondistended nontender no guarding, no rigidity Skin no active skin rash Neurology-grossly intact, nonfocal alert awake cooperated during physical examination Extremity- no pedal edema able to move all 4 extremities Problem\Assessment\Plan Problems/Diagnosis: (1) Psychosis Grave disability History of bipolar disorder continue management as per the psychiatrist. Hypokalemia The patient's potassium was 3.3. Replaced potassium. Monitor the patient's electrolytes. The patient voiced no acute medical complaints or concerns and none were voiced by nursing staff either The hospitalist team we will continue to follow the patient during the course of hospitalization Date of Service: Sep 22, 2024 Billing Provider: GABINO FRENCH MD Common Visit Codes: [id number] INP/OBS CARE(LOW) Problem Qualifiers (1) Psychosis: GABINO FRENCH MD Sep 22, 2024 18:28
[2024-09-22 19:00] VITALS: RESP 16; O2SAT 97
[2024-09-22 19:44] VITALS: BP 101/73; PULSE 70; RESP 16; TEMP 97.2; O2SAT 97
[2024-09-23 07:00] VITALS: RESP 12; O2SAT 96
[2024-09-23 08:00] VITALS: BP 110/63; PULSE 64; RESP 12; TEMP 97.3; O2SAT 96
--- NOTE | 2024-09-23 10:37 | PROGRESS NOTE ---
Progress Note Dictate Providers to CC ~ Central Line/PICC still needed: N\\A Antibiotic Ordered?: No MRSA Education MRSA Education Provided to pt: No Objective Vitals Vital Signs Date Time Temp Pulse Resp B/P (MAP) Pulse Ox O2 Delivery O2 Flow Rate FiO2 09/23/24 08:00 97.3 64 12 110/63 (79) 96 09/23/24 07:00 Room Air Problem\\Assessment\\Plan Problems/Diagnosis: (1) Psychosis (2) Mood disorder Psychiatrist's Progress Note Date of Service: Sep 22, 2024 Notes CHART REVIEW Pancho is admitted on a 5150 for GD after he was brought into the ED to be evaluated after experiencing experiencing confusion and has not been able to take care of his basic needs such as showering or eating because of this. Denny is unable to state where he could find or obtain food and has lost 8lbs in less than a week.Pancho is currently living with his brother and mother in [place]. Pancho is on disability and receives around $800.00 per month on SSI. The pt denies having a significant other or children. The pt has a doctor that he sees at [facility] and will f/u with that provider upon discharge. Spoke with Jean Paul, pt's brother, at the request of pt. Jean Paul states that the pt has a history of Bipolar d/o and has experienced a significant increase in mh sx since a medication change in July. Jean Paul states that his brother has basically been catatonic over the last couple of weeks and stopped eating about one week ago. Jean Paul is concerned that the pt may have an underlying health issue and that he was recently referred to for a neuro consult and MRI. Pt appears to have a positive support system and care team. Pt will have these supports as well upon discharge. The pt is a poor historian, this mortgage or loan underwriter was unable to obtain much information, however he does appreciate his brother, Jean Paul being able to share information and speak with staff about his symptoms. ASSESSMENT The patient was interviewed in observation room. The patient was actively resting in bed with eyes open. The patient endorses "alright." The patient endorses no worsening mental health symptoms. Denies SI.Denies HI. Denies AVH. The patient endorses adequate sleep and food intake. The patient is stable no acute distress noted. The patient presents as a bit disorganized (was able to state year and president), cooperative, and disengaged. Per staff report patient is medication compliant. Per staff report no abnormal behaviors. Per staff report patient is still requiring minimal assistance with ambulation. Will continue daily assessment and adjusting t reatment as needed. Closely monitor behavior and response to medication during hospitalization. Results Of any Diagn. Testing REVIEW OF LABS URINALYSIS NEGATIVE COVID NEGATIVE URINE TOX SCREEN NEGATIVE WBC 4.8 RBC 4.28 HEMOGLOBIN 13.3 HEMATOCRIT 39.4 PLATELET COUNT 127 SODIUM 143 POTASSIUM 3.3 CHLORIDE 104 ANION GAP 7 BUN 7 CREATININE 0.92 eGFR 85 CALCIUM 89.2 ALBUMIN 3.1 TRIGLYCERIDES 71 CHOLESTEROL 155 HDL 52 LDL 81 Speech: Tangential, Other (CIRCUMSTANTIAL) Eye Contact: Normal Motor Activity: Normal Affect: Constricted Orientation Impairment: Place, Time Memory Impairment: Short-Term Attention: Distracted Hallucinations: None Other: None Suicidality: None Homicidality: None Delusions: None Behavior: Bizarre Insight: Poor Judgment: Poor Treatment DEPAKOTE ER 500 MG P.O. Q.H.S. ATIVAN 1 MG P.O. TID PAXIL 30 MG P.O. Q.H.S. TRAZODONE 50 MG P.O. Q.H.S. PRN BENZTROPINE 1 MG P.O. B.I.D. THORAZINE 50 MG P.O. Q.6 PRN BENADRYL 50 MG P.O. Q.6 PRN Monitoring by Staff, Milieu, Group, and Individual counseling as needed -- Accor ding to the [place] Suicide Assessment the above named patient is on LOS. [id number]-Patient is unable to formulate a plan to safely meet their basic needs of food, clothing, and skilled nursing due to the severity of their mental illness. We are still titrating medications to an effective dose while maintaining a therapeutic environment to prevent decompensation and readmission. Total time spent 30 minutes REVIEW OF Clinical notes [X ] RN notes [X] PCT documentation [X] SW notes Labs [ X] Medications [X] Care trends/care activity [X] Vitals [X] DISCUSSION WITH sales agent financial report service [X] Staff SW [X] Treatment Team [X] Discharge UNSURE AT THIS TIME. DISCHARGE BACK TO HOME WITH HIS BROTHER. CODING VISIT-PSYCHIATRY Date of Service: Sep 22, 2024 Billing Provider: SARAH,HEMA GENERAL MILLING SUPERINTENDENT Psych Common Visit Codes: [id number] INP/OBS CARE (Mod) Problem Qualifiers (1) Psychosis: HEMA SMITH GENERAL MILLING SUPERINTENDENT Sep 23, 2024 10:37
--- NOTE | 2024-09-23 15:21 | PROGRESS NOTE ---
Progress Note Dictate Providers to CC ~ Central Line/PICC still needed: N\\A Antibiotic Ordered?: No MRSA Education MRSA Education Provided to pt: No Objective Vitals Vital Signs Date Time Temp Pulse Resp B/P (MAP) Pulse Ox O2 Delivery O2 Flow Rate FiO2 09/23/24 08:00 97.3 64 12 110/63 (79) 96 09/23/24 07:00 Room Air Problem\\Assessment\\Plan Problems/Diagnosis: (1) Psychosis (2) Mood disorder Psychiatrist's Progress Note Date of Service: Sep 23, 2024 Notes CHART REVIEW Pancho is admitted on a 5150 for GD after he was brought into the ED to be evaluated after experiencing experiencing confusion and has not been able to take care of his basic needs such as showering or eating because of this. Denny is unable to state where he could find or obtain food and has lost 8lbs in less than a week.Pancho is currently living with his brother and mother in [place]. Pancho is on disability and receives around $800.00 per month on SSI. The pt denies having a significant other or children. The pt has a doctor that he sees at [facility] and will f/u with that provider upon discharge. Spoke with Jean Paul, pt's brother, at the request of pt. Jean Paul states that the pt has a history of Bipolar d/o and has experienced a significant increase in mh sx since a medication change in July. Jean Paul states that his brother has basically been catatonic over the last couple of weeks and stopped eating about one week ago. Jean Paul is concerned that the pt may have an underlying health issue and that he was recently referred to for a neuro consult and MRI. Pt appears to have a positive support system and care team. Pt will have these supports as well upon discharge. The pt is a poor historian, this teletypewriter installer was unable to obtain much information, however he does appreciate his brother, Jean Paul being able to share information and speak with staff about his symptoms. ASSESSMENT The patient was interviewed in observation room. The patient was actively walking in hallway with staff. The patient endorses "fine." The patient endorses no worsening mental health symptoms. Denies SI.Denies HI. Denies AVH. The patient endorses adequate sleep and food intake. The patient is stable no acute distress noted. The patient presents as disorganized, loose associations, and somewhat engaged. Per staff report patient is medication compliant. Per staff report no abnormal behaviors. Will continue daily assessment and adjusting treatment as needed. Closely monitor behavior and response to medication during hospitalization. We will attempt to get MRI again on Tuesday. Results Of any Diagn. Testing REVIEW OF LABS URINALYSIS NEGATIVE COVID NEGATIVE URINE TOX SCREEN NEGATIVE WBC 4.8 RBC 4.28 HEMOGLOBIN 13.3 HEMATOCRIT 39.4 PLATELET COUNT 127 SODIUM 143 POTASSIUM 3.3 CHLORIDE 104 ANION GAP 7 BUN 7 CREATININE 0.92 eGFR 85 CALCIUM 89.2 ALBUMIN 3.1 TRIGLYCERIDES 71 CHOLESTEROL 155 HDL 52 LDL 81 Speech: Tangential, Impoverished Eye Contact: Normal Motor Activity: Normal Affect: Constricted Orientation Impairment: Place, Time Memory Impairment: Short-Term Attention: Distracted Hallucinations: None Other: None Suicidality: None Homicidality: None Delusions: None Behavior: Bizarre Insight: Poor Judgment: Poor Treatment DEPAKOTE ER 500 MG P.O. Q.H.S. ATIVAN 1 MG P.O. TID PAXIL 30 MG P.O. Q.H.S. TRAZODONE 50 MG P.O. Q.H.S. PRN BENZTROPINE 1 MG P.O. B.I.D. THORAZINE 50 MG P.O. Q.6 PRN BENADRYL 50 MG P.O. Q.6 PRN Monitoring by Staff, Milieu, Group, and Individual counseling as needed -- According to the [place] Suicide Assessment the above named patient is on LOS. [id number]-Patient is unable to formulate a plan to safely meet their basic needs of food, clothing, and usp due to the severity of their mental illness. We are still titrating medications to an effective dose while maintaining a therapeutic environment to prevent decompensation and readmission. Total time spent 45 minutes REVIEW OF Clinical notes [X ] RN notes [X] PCT documentation [X] SW notes Labs [ X] Medications [X] Care trends/care activity [X] Vitals [X] DISCUSSION WITH steel welder [X] Staff SW [X] Treatment Team [X] Discharge UNSURE AT THIS TIME. DISCHARGE BACK TO HOME WITH HIS BROTHER. CODING VISIT-PSYCHIATRY Date of Service: Sep 23, 2024 Billing Provider: HEMA SMITH APRN Psych Common Visit Codes: [id number] INP/OBS CARE(Mod) Problem Qualifiers (1) Psychosis: HEMA SMITH AUTOMOTIVE QUALITY MANAGER Sep 23, 2024 15:21
[2024-09-23 19:00] VITALS: RESP 16; O2SAT 96
[2024-09-23 20:00] VITALS: BP 115/62; PULSE 69; RESP 16; TEMP 97; O2SAT 96
[2024-09-24 07:00] VITALS: BP 102/60; PULSE 72; RESP 15; TEMP 97.8; O2SAT 96
[2024-09-24 19:28] VITALS: RESP 16; O2SAT 96
[2024-09-24 19:31] VITALS: BP 110/63; PULSE 72; RESP 16; TEMP 97.1; O2SAT 96
--- NOTE | 2024-09-24 20:45 | PROGRESS NOTE- Residence ---
Progress Note - Resident Providers to CC Resident Creating Document: ASIA DYER RES ~ Antibiotic Timeout Antibiotic Ordered?: No Subjective Patient seen and examined at the bedside denied any medical issue Objective Vital Signs Date Time Temp Pulse Resp B/P (MAP) Pulse Ox O2 Delivery O2 Flow Rate FiO2 09/24/24 19:31 97.1 72 16 110/63 (79) 96 Room Air General: Awake and Alert, no acute distress. HEENT: Conjunctiva pink, Sclera clear, Mucus Membranes moist. Neck: Supple without masses and tenderness. Resp: Lungs clear to auscultation bilaterally. Heart: Regular Rate and rhythm, normal S1 and S2 Abdomen: Soft and non tender no organomegaly Extremities: No cyanosis,clubbing or edema. Skin: Warm and Dry. Neurological: Speech is clear, alert, and oriented x 4, no gross neurological deficits Assessment Assessment 54-year-old male patient admitted to mental health unit due to auditory and visual hallucinations, confusion and suicidal ideations. Placed on 5150 for gravely disabled. Plan Plan Schizophrenia: Psychosis: Graft disability: History of bipolar disorder: Continue management as per psychiatrist. Constipation: MiraLax 17 g HS. Dulcolax 10 mg TID PRN suppository. Disposition: Hospitalist team will continue to monitor the patient. Asia Dyer MD Internal Medicine Resident Date of Service: Sep 24, 2024 Billing Provider: MING SOSA MD Common Visit Codes: [id number] INP/OBS CARE(MOD) ASIA DYER RES Sep 24, 2024 20:45 MING SOSA MD Sep 25, 2024 07:44
--- NOTE | 2024-09-24 21:00 | PROGRESS NOTE ---
Progress Note Dictate Providers to CC ~ Central Line/PICC still needed: N\\A Antibiotic Ordered?: No MRSA Education MRSA Education Provided to pt: No Objective Vitals Vital Signs Date Time Temp Pulse Resp B/P (MAP) Pulse Ox O2 Delivery O2 Flow Rate FiO2 09/24/24 19:31 97.1 72 16 110/63 (79) 96 Room Air Problem\\Assessment\\Plan Problems/Diagnosis: (1) Psychosis (2) Mood disorder Psychiatrist's Progress Note Date of Service: Sep 24, 2024 Notes CHART REVIEW Pancho is admitted on a 5150 for GD after he was brought into the ED to be evaluated after experiencing experiencing confusion and has not been able to take care of his basic needs such as showering or eating because of this. Denny is unable to state where he could find or obtain food and has lost 8lbs in less than a week.Pancho is currently living with his brother and mother in [place]. Pancho is on disability and receives around $800.00 per month on SSI. The pt denies having a significant other or children. The pt has a doctor that he sees at [facility] and will f/u with that provider upon discharge. Spoke with Jean Paul, pt's brother, at the request of pt. Jean Paul states that the pt has a history of Bipolar d/o and has experienced a significant increase in mh sx since a medication change in July. Jean Paul states that his brother has basically been catatonic over the last couple of weeks and stopped eating about one week ago. Jean Paul is concerned that the pt may have an underlying health issue and that he was recently referred to for a neuro consult and MRI. Pt appears to have a positive support system and care team. Pt will have these supports as well upon discharge. The pt is a poor historian, this radio script writer was unable to obtain much information, however he does appreciate his brother, Jean Paul being able to share information and speak with staff about his symptoms. ASSESSMENT The patient was interviewed in observation room. The patient was actively walking in hallway with staff. The patient endorses "Okay." When asked what month is the patient endorses "I don't have purple underwear." The pat Denies SI.Denies HI. Denies AVH. The patient endorses adequate sleep and food intake. The patient is stable no acute distress noted. The patient presents as disorganized, word salad, and distracted during session. Per staff report patient is medication compliant. Per staff report no abnormal behaviors. Will continue daily assessment and adjusting treatment as needed. Closely monitor behavior and response to medication during hospitalization. Results Of any Diagn. Testing REVIEW OF LABS URINALYSIS NEGATIVE COVID NEGATIVE URINE TOX SCREEN NEGATIVE WBC 4.8 RBC 4.28 HEMOGLOBIN 13.3 HEMATOCRIT 39.4 PLATELET COUNT 127 SODIUM 143 POTASSIUM 3.3 CHLORIDE 104 ANION GAP 7 BUN 7 CREATININE 0.92 eGFR 85 CALCIUM 89.2 ALBUMIN 3.1 TRIGLYCERIDES 71 CHOLESTEROL 155 HDL 52 LDL 81 Speech: Tangential, Impoverished Eye Contact: Other (INTERMITTENT) Motor Activity: Normal Affect: Constricted Orientation Impairment: Place, Time Memory Impairment: Short-Term Attention: Distracted Hallucinations: None Other: None Suicidality: None Homicidality: None Delusions: None Behavior: Cooperative Insight: Poor Judgment: Poor Treatment DEPAKOTE ER 500 MG P.O. Q.H.S. ATIVAN 1 MG P.O. TID PAXIL 30 MG P.O. Q.H.S. TRAZODONE 50 MG P.O. Q.H.S. PRN BENZTROPINE 1 MG P.O. B.I.D. THORAZINE 50 MG P.O. Q.6 PRN BENADRYL 50 MG P.O. Q.6 PRN Monitoring by Staff, Milieu, Group, and Individual counseling as needed -- According to the [place] Suicide Assessment the above named patient is on LOS. [id number]-Patient is unable to formulate a plan to safely meet their basic needs of food, clothing, and fdc due to the severity of their mental il lness. We are still titrating medications to an effective dose while maintaining a therapeutic environment to prevent decompensation and readmission. Total time spent 40 minutes REVIEW OF Clinical notes [X ] RN notes [X] PCT documentation [X] SW notes Labs [ X] Medications [X] Care trends/care activity [X] Vitals [X] DISCUSSION WITH house steward/stewardess [X] Staff SW [X] Treatment Team [X] Discharge UNSURE AT THIS TIME. DISCHARGE BACK TO HOME WITH HIS BROTHER. CODING VISIT-PSYCHIATRY Date of Service: Sep 24, 2024 Billing Provider: HEMA SMITH APRN Psych Common Visit Codes: [id number] INP/OBS CARE(Mod) Problem Qualifiers (1) Psychosis: HEMA SMITH PILOT BOAT CAPTAIN Sep 24, 2024 21:00
--- NOTE | 2024-09-25 06:04 | ELECTROCARDIOGRAPH REPORT ---
[facility] Test Date: 2024-09-24 Test Time: 21:31:05 Pat Name: ILSA TERRY Department: 3rd FLOOR PCU Room: [facility] Gender: M Tax Consultant: : 1970 Requested By: KAROLINA RODRIGUEZ Order Number: [id number] Reading MD: Dr. EARLENE Young Measurements Intervals [place] Rate: 67 P: 79 [place]: 182 QRS: 4 QRSD: 140 T: 110 QT: 432 QTc: 456 Interpretive Statements Sinus rhythm Left bundle branch block Electronically Signed On 09-25-2024 9:23:[address] EARLENE Young Please click the below link to view image of tracing.
[2024-09-25 07:00] VITALS: BP 86/42; PULSE 60; RESP 16; TEMP 96.7; O2SAT 96
[2024-09-25 07:30] VITALS: BP 108/65; PULSE 67
--- NOTE | 2024-09-25 14:11 | PROGRESS NOTE ---
Progress Note Dictate Providers to CC ~ Central Line/PICC still needed: N\\A Antibiotic Ordered?: No MRSA Education MRSA Education Provided to pt: No Objective Vitals Vital Signs Date Time Temp Pulse Resp B/P (MAP) Pulse Ox O2 Delivery O2 Flow Rate FiO2 09/25/24 07:30 67 108/65 (79) 09/25/24 07:00 96.7 16 96 Room Air Problem\\Assessment\\Plan Problems/Diagnosis: (1) Psychosis (2) Mood disorder Psychiatrist's Progress Note Date of Service: Sep 25, 2024 Notes CHART REVIEW Pancho is admitted on a 5150 for GD after he was brought into the ED to be evaluated after experiencing experiencing confusion and has not been able to take care of his basic needs such as showering or eating because of this. Denny is unable to state where he could find or obtain food and has lost 8lbs in less than a week.Pancho is currently living with his brother and mother in [place]. Pancho is on disability and receives around $800.00 per month on SSI. The pt denies having a significant other or children. The pt has a doctor that he sees at [facility] and will f/u with that provider upon discharge. Spoke with Jean Paul, pt's brother, at the request of pt. Jean Paul states that the pt has a history of Bipolar d/o and has experienced a significant increase in mh sx since a medication change in July. Jean Paul states that his brother has basically been catatonic over the last couple of weeks and stopped eating about one week ago. Jean Paul is concerned that the pt may have an underlying health issue and that he was recently referred to for a neuro consult and MRI. Pt appears to have a positive support system and care team. Pt will have these supports as well upon discharge. The pt is a poor historian, this sign writer hand was unable to obtain much information, however he does appreciate his brother, Jean Paul being able to share information and speak with staff about his symptoms. ASSESSMENT The patient was interviewed in observation room. The patient was actively in rec room participating in activity. The patient endorses "Okay." The patient endorses no worsening mental health symptoms. Denies SI.Denies HI. Denies AVH. The patient endorses adequate sleep and food intake. The patient is stable no acute distress noted. The patient presents as a bit disorganized,and distracted during session. Per staff report patient is medication compliant. Per staff report no abnormal behaviors. Will continue daily assessment and adjusting treatment as needed. Closely monitor behavior and response to medication during hospitalization. Results Of any Diagn. Testing Results Of any Diagn. Testing REVIEW OF LABS URINALYSIS NEGATIVE COVID NEGATIVE URINE TOX SCREEN NEGATIVE WBC 4.8 RBC 4.28 HEMOGLOBIN 13.3 HEMATOCRIT 39.4 PLATELET COUNT 127 SODIUM 143 POTASSIUM 3.3 CHLORIDE 104 ANION GAP 7 BUN 7 CREATININE 0.92 eGFR 85 CALCIUM 89.2 ALBUMIN 3.1 TRIGLYCERIDES 71 CHOLESTEROL 155 HDL 52 LDL 81 Appearnace: Other Speech: Impoverished Eye Contact: Other (INTERMITTENT) Motor Activity: Normal Affect: Constricted Orientation Impairment: Place, Time Memory Impairment: Short-Term, Long-term Attention: Distracted Hallucinations: None Other: None Suicidality: None Homicidality: None Delusions: None Behavior: Cooperative Insight: Poor Judgment: Poor Treatment DEPAKOTE ER 500 MG P.O. Q.H.S. ATIVAN 1 MG P.O. TID PAXIL 30 MG P.O. Q.H.S. TRAZODONE 50 MG P.O. Q.H.S. PRN BENZTROPINE 1 MG P.O. B.I.D. THORAZINE 50 MG P.O. Q.6 PRN BENADRYL 50 MG P.O. Q.6 PRN Monitoring by Staff, Milieu, Group, and Individual counseling as needed -- According to the [place] Suicide Assessment the above named patient is on LOS. [id number]-Patient is unable to formulate a plan to safely meet their basic needs of food, clothing, and snf due to the severity of their mental illness. We are still titrating medications to an effective dose while maintaining a therapeutic environment to prevent decompensation and readmission. Total time spent 35 minutes REVIEW OF Clinical notes [X ] RN notes [X] PCT documentation [X] SW notes Labs [ X] Medications [X] Care trends/care activity [X] Vitals [X] DISCUSSION WITH fitting supervisor [X] Staff SW [X] Treatment Team [X] Discharge UNSURE AT THIS TIME. DISCHARGE BACK TO HOME WITH HIS BROTHER. CODING VISIT-PSYCHIATRY Date of Service: Sep 25, 2024 Billing Provider: HEMA SMITH APRN Psych Common Visit Codes: [id number] INP/OBS CARE(Mod) Problem Qualifiers (1) Psychosis: HEMA SMITH POLYSOMNOGRAPHIC TECHNICIAN Sep 25, 2024 14:11
[2024-09-25 19:26] VITALS: RESP 16; O2SAT 94
[2024-09-25 19:30] VITALS: BP 107/60; PULSE 66; RESP 16; TEMP 97.8; O2SAT 94
[2024-09-26 07:00] VITALS: BP 105/55; PULSE 59; RESP 14; TEMP 97.3; O2SAT 95
[2024-09-26 08:00] VITALS: RESP 14; O2SAT 95
--- NOTE | 2024-09-26 15:17 | PROGRESS NOTE ---
Progress Note Dictate Providers to CC ~ Central Line/PICC still needed: N\\A Antibiotic Ordered?: No MRSA Education MRSA Education Provided to pt: No Objective Vitals Vital Signs Date Time Temp Pulse Resp B/P (MAP) Pulse Ox O2 Delivery O2 Flow Rate FiO2 09/26/24 07:00 97.3 59 14 105/55 (72) 95 Room Air Problem\\Assessment\\Plan Problems/Diagnosis: (1) Psychosis (2) Mood disorder Psychiatrist's Progress Note Date of Service: Sep 26, 2024 Notes CHART REVIEW Pancho is admitted on a 5150 for GD after he was brought into the ED to be evaluated after experiencing experiencing confusion and has not been able to take care of his basic needs such as showering or eating because of this. Denny is unable to state where he could find or obtain food and has lost 8lbs in less than a week.Pancho is currently living with his brother and mother in [place]. Pancho is on disability and receives around $800.00 per month on SSI. The pt denies having a significant other or children. The pt has a doctor that he sees at [facility] and will f/u with that provider upon discharge. Spoke with Jean Paul, pt's brother, at the request of pt. Jean Paul states that the pt has a history of Bipolar d/o and has experienced a significant increase in mh sx since a medication change in July. Jean Paul states that his brother has basically been catatonic over the last couple of weeks and stopped eating about one week ago. Jean Paul is concerned that the pt may have an underlying health issue and that he was recently referred to for a neuro consult and MRI. Pt appears to have a positive support system and care team. Pt will have these supports as well upon discharge. The pt is a poor historian, this jingle writer was unable to obtain much information, however he does appreciate his brother, Jean Paul being able to share information and speak with staff about his symptoms. ASSESSMENT The patient was interviewed in observation room. The patient was actively walking in hallway with staff. The patient endorses "I'm alright." The patient endorses no worsening mental health symptoms. Denies SI.Denies HI. Denies AVH. The patient endorses adequate sleep and food intake. The patient is stable no acute distress noted. The patient presents as disorganized, and distracted during session. Per staff report patient attended outside activity. Per staff report patient is medication compliant. Per staff report no abnormal behaviors. Will continue daily assessment and adjusting treatment as needed. Closely monitor behavior and response to medication during hospitalization. MRI scheduled for today. Results Of any Diagn. Testing Results Of any Diagn. Testing Results Of any Diagn. Testing REVIEW OF LABS URINALYSIS NEGATIVE COVID NEGATIVE URINE TOX SCREEN NEGATIVE WBC 4.8 RBC 4.28 HEMOGLOBIN 13.3 HEMATOCRIT 39.4 PLATELET COUNT 127 SODIUM 143 POTASSIUM 3.3 CHLORIDE 104 ANION GAP 7 BUN 7 CREATININE 0.92 eGFR 85 CALCIUM 89.2 ALBUMIN 3.1 TRIGLYCERIDES 71 CHOLESTEROL 155 HDL 52 LDL 81 Appearnace: Other Speech: Impoverished Eye Contact: Other (INTERMITTENT) Motor Activity: Normal Affect: Full Orientation Impairment: Place, Time Memory Impairment: Short-Term, Long-term Hallucinations: None Other: None Suicidality: None Homicidality: None Delusions: None Behavior: Cooperative, Guarded Insight: Poor Judgment: Poor Treatment DEPAKOTE ER 500 MG P.O. Q.H.S. ATIVAN 1 MG P.O. TID PAXIL 30 MG P.O. Q.H.S. TRAZODONE 50 MG P.O. Q.H.S. PRN BENZTROPINE 1 MG P.O. B.I.D. THORAZINE 50 MG P.O. Q.6 PRN BENADRYL 50 MG P.O. Q.6 PRN Monitoring by Staff, Milieu, Group, and Individual counseling as needed -- According to the [place] Suicide Assessment the above named patient is on LOS. [id number]-Patient is unable to formulate a plan to safely meet their basic needs of food, clothing, and detention due to the severity of their mental illnes s. We are still titrating medications to an effective dose while maintaining a therapeutic environment to prevent decompensation and readmission. Total time spent 45 minutes REVIEW OF Clinical notes [X ] RN notes [X] PCT documentation [X] SW notes Labs [ X] Medications [X] Care trends/care activity [X] Vitals [X] DISCUSSION WITH orange picker machine operator [X] Staff SW [X] Treatment Team [X] Discharge UNSURE AT THIS TIME. DISCHARGE BACK TO HOME WITH HIS BROTHER. CODING VISIT-PSYCHIATRY Date of Service: Sep 26, 2024 Billing Provider: HEMA SMITH APRN Psych Common Visit Codes: [id number] INP/OBS CARE(Low) Problem Qualifiers (1) Psychosis: HEMA SMITH FLY RAIL OPERATOR Sep 26, 2024 15:17
--- NOTE | 2024-09-26 16:44 | PROGRESS NOTE ---
Daily Progress Note Providers to CC ~ Antibiotic Timeout Antibiotic Ordered?: No Subjective Patient was seen in presence of mental health nursing staff he looks comfortable cooperated well. MRI of head done September 19, 2024 showed Essentially nondiagnostic examination due to extensive motion artifact. Repeat imaging is recommended. No other concerns no new focal neurological deficit noticed since my last visit with him Objective Vital Signs Date Time Temp Pulse Resp B/P (MAP) Pulse Ox O2 Delivery O2 Flow Rate FiO2 09/26/24 07:00 97.3 59 14 105/55 (72) 95 Room Air General-patient not in any acute distress, alert awake , age-appropriate, looks comfortable HEENT-atraumatic normocephalic, neck supple without elevated JVD, no thyromegaly or carotid bruit. No lymphadenopathy bilaterally. Eyes-no icterus or pallor seen in eyes Chest-clear to auscultation bilaterally, breathing nonlabored no tachypnea, no wheezing, no crepitation, no crackles. Heart-S1-S2 normal, regular heart rate no murmur Abdomen bowel sounds positive on auscultation, soft nondistended nontender no guarding, no rigidity Skin no active skin rash Neurology-grossly intact, nonfocal alert awake cooperated during physical examination Extremity- no pedal edema able to move all 4 extremities Problem\Assessment\Plan Problems/Diagnosis: (1) Psychosis Grave disability History of bipolar disorder continue management as per the psychiatrist. Hypokalemia The patient's potassium was 3.3. Replaced potassium. Monitor the patient's electrolytes. The patient voiced no acute medical complaints or concerns and none were voiced by nursing staff either The hospitalist team we will continue to follow the patient during the course of hospitalization Date of Service: Sep 26, 2024 Billing Provider: GABINO FRENCH MD Common Visit Codes: [id number] INP/OBS CARE(HIGH) Problem Qualifiers (1) Psychosis: GABINO FRENCH MD Sep 26, 2024 16:44
[2024-09-26] MEDS: diazepam inj 5 MG/ML inj. IV ONE ×2 (18:33→19:44)
--- NOTE | 2024-09-26 20:38 | RADIOLOGY REPORT ---
[facility] EXAMINATION: MR MRI HEAD INDICATION: Neurological issues COMPARISON: MR MRI HEAD on DOS: 09/19/24, MR MRI HEAD on DOS: 09/17/24 TECHNIQUE: Multiplanar, multisequence magnetic resonance imaging of the brain was performed without the use of i ntravenous contrast. FINDINGS: Evaluation was degraded by motion artifact. Evaluation was also terminated early, with several patric ng sequences. Diffusion-weighted images demonstrate no evidence of acute infarct. IMPRESSION: 1. Limited evaluation without evidence for acute infarct.
[2024-09-27 07:00] VITALS: BP 111/63; PULSE 64; RESP 14; TEMP 96.8; O2SAT 96
[2024-09-27 08:00] VITALS: RESP 14; O2SAT 96
--- NOTE | 2024-09-27 15:59 | PROGRESS NOTE ---
Progress Note Dictate Providers to CC ~ Central Line/PICC still needed: N\\A Antibiotic Ordered?: No MRSA Education MRSA Education Provided to pt: No Objective Vitals Vital Signs Date Time Temp Pulse Resp B/P (MAP) Pulse Ox O2 Delivery O2 Flow Rate FiO2 09/27/24 08:00 14 96 Room Air 09/27/24 07:00 96.8 64 111/63 (79) Problem\\Assessment\\Plan Problems/Diagnosis: (1) Psychosis (2) Mood disorder Psychiatrist's Progress Note Date of Service: Sep 27, 2024 Notes CHART REVIEW Pancho is admitted on a 5150 for GD after he was brought into the ED to be evaluated after experiencing experiencing confusion and has not been able to take care of his basic needs such as showering or eating because of this. Denny is unable to state where he could find or obtain food and has lost 8lbs in less than a week.Pancho is currently living with his brother and mother in [place]. Pancho is on disability and receives around $800.00 per month on SSI. The pt denies having a significant other or children. The pt has a doctor that he sees at [facility] and will f/u with that provider upon discharge. Spoke with Jean Paul, pt's brother, at the request of pt. Jean Paul states that the pt has a history of Bipolar d/o and has experienced a significant increase in mh sx since a medication change in July. Jean Paul states that his brother has basically been catatonic over the last couple of weeks and stopped eating about one week ago. Jean Paul is concerned that the pt may have an underlying health issue and that he was recently referred to for a neuro consult and MRI. Pt appears to have a positive support system and care team. Pt will have these supports as well upon discharge. The pt is a poor historian, this commercial lines underwriter was unable to obtain much information, however he does appreciate his brother, Jean Paul being able to share information and speak with staff about his symptoms. ASSESSMENT The patient was interviewed in observation room. The patient was actively walking in hallway with staff. The patient endorses "I'm okay." The patient endorses no worsening mental health symptoms. Denies SI.Denies HI. Denies AVH. The patient endorses adequate sleep and food intake. The patient is stable no acute distress noted. The patient presents as confused, calm and cooperative, during session. Per staff report patient attended outside activity. Per staff report patient is medication compliant. Per staff report no abnormal behaviors. Will continue daily assessment and adjusting treatment as needed. Closely monitor behavior and response to medic ation during hospitalization. Results Of any Diagn. Testing REVIEW OF LABS URINALYSIS NEGATIVE COVID NEGATIVE URINE TOX SCREEN NEGATIVE WBC 4.8 RBC 4.28 HEMOGLOBIN 13.3 HEMATOCRIT 39.4 PLATELET COUNT 127 SODIUM 143 POTASSIUM 3.3 CHLORIDE 104 ANION GAP 7 BUN 7 CREATININE 0.92 eGFR 85 CALCIUM 89.2 ALBUMIN 3.1 TRIGLYCERIDES 71 CHOLESTEROL 155 HDL 52 LDL 81 Appearnace: Other Speech: Tangential Eye Contact: Other (INTERMITTENT) Motor Activity: Normal Orientation Impairment: Place, Time Memory Impairment: Short-Term, Long-term Attention: Distracted Hallucinations: None Other: None Suicidality: None Homicidality: None Delusions: None Behavior: Cooperative Insight: Poor Judgment: Poor Treatment DEPAKOTE ER 500 MG P.O. Q.H.S. ATIVAN 1 MG P.O. TID PAXIL 30 MG P.O. Q.H.S. TRAZODONE 50 MG P.O. Q.H.S. PRN BENZTROPINE 1 MG P.O. B.I.D. THORAZINE 50 MG P.O. Q.6 PRN BENADRYL 50 MG P.O. Q.6 PRN Monitoring by Staff, Milieu, Group, and Individual counseling as needed -- According to the [place] Suicide Assessment the above named patient is on LOS. [id number]-Patient is unable to formulate a plan to safely meet their basic needs of food, clothing, and long-term due to the severity of their mental illness. We are still titrating medications to an effective dose while maintaining a therapeutic environment to prevent decompensation and readmission. Total time spent 45 minutes REVIEW OF Clinical notes [X ] RN notes [X] PCT documentation [X] SW notes Labs [ X] Medications [X] Care trends/care activity [X] Vitals [X] DISCUSSION WITH java grails developer [X] Staff SW [X] Treatment Team [X] Discharge UNSURE AT THIS TIME. DISCHARGE BACK TO HOME WITH HIS BROTHER. CODING VISIT-PSYCHIATRY Date of Service: Sep 27, 2024 Billing Provider: HEMA SMITH APRN Psych Common Visit Codes: [id number] INP/OBS CARE(Mod) Problem Qualifiers (1) Psychosis: HEMA SMITH CLOTHER IN Sep 27, 2024 15:59
[2024-09-27 19:00] VITALS: RESP 14; O2SAT 96
[2024-09-27 20:00] VITALS: BP 110/64; PULSE 66; RESP 14; TEMP 97.2; O2SAT 96
[2024-09-28 07:00] VITALS: RESP 16; O2SAT 99
[2024-09-28 08:00] VITALS: BP 119/70; PULSE 65; RESP 16; TEMP 97.3; O2SAT 99
--- NOTE | 2024-09-28 12:41 | PROGRESS NOTE ---
Progress Note Dictate Providers to CC ~ Central Line/PICC still needed: N\\A Antibiotic Ordered?: No MRSA Education MRSA Education Provided to pt: No Objective Vitals Vital Signs Date Time Temp Pulse Resp B/P (MAP) Pulse Ox O2 Delivery O2 Flow Rate FiO2 09/28/24 08:00 97.3 65 16 119/70 (86) 99 Room Air Problem\\Assessment\\Plan Problems/Diagnosis: (1) Psychosis (2) Mood disorder Psychiatrist's Progress Note Date of Service: Sep 28, 2024 Notes CHART REVIEW Pancho is admitted on a 5150 for GD after he was brought into the ED to be evaluated after experiencing experiencing confusion and has not been able to take care of his basic needs such as showering or eating because of this. Denny is unable to state where he could find or obtain food and has lost 8lbs in less than a week.Pancho is currently living with his brother and mother in [place]. Pancho is on disability and receives around $800.00 per month on SSI. The pt denies having a significant other or children. The pt has a doctor that he sees at [facility] and will f/u with that provider upon discharge. Spoke with Jean Paul, pt's brother, at the request of pt. Jean Paul states that the pt has a history of Bipolar d/o and has experienced a significant increase in mh sx since a medication change in July. Jean Paul states that his brother has basically been catatonic over the last couple of weeks and stopped eating about one week ago. Jean Paul is concerned that the pt may have an underlying health issue and that he was recently referred to for a neuro consult and MRI. Pt appears to have a positive support system and care team. Pt will have these supports as well upon discharge. The pt is a poor historian, this teletypewriter operator was unable to obtain much information, however he does appreciate his brother, Jean Paul being able to share information and speak with staff about his symptoms. ASSESSMENT The patient was interviewed in observation room. The patient was actively resting in bed with eyes open. The patient endorses "good." The patient endorses no worsening mental health symptoms. Denies SI.Denies HI. Denies AVH. The patient endorses adequate sleep and food intake. The patient is stable no acute distress noted. The patient presents as pleasantly confused, cooperative during session. Per staff report patient at tended outside activity. Per staff report patient is medication compliant. Per staff report no abnormal behaviors. Will continue daily assessment and adjusting treatment as needed. Closely monitor behavior and response to medication during hospitalization. Will follow-up with the patient's brother Jean Paul regarding discharge. Patient may need to be discharged to rehab/SNF facility. We are unable to get MRI X3 due to patient unable to be still. Results Of any Diagn. Testing REVIEW OF LABS URINALYSIS NEGATIVE COVID NEGATIVE URINE TOX SCREEN NEGATIVE WBC 4.8 RBC 4.28 HEMOGLOBIN 13.3 HEMATOCRIT 39.4 PLATELET COUNT 127 SODIUM 143 POTASSIUM 3.3 CHLORIDE 104 ANION GAP 7 BUN 7 CREATININE 0.92 eGFR 85 CALCIUM 89.2 ALBUMIN 3.1 TRIGLYCERIDES 71 CHOLESTEROL 155 HDL 52 LDL 81 Appearnace: Other Speech: Tangential Eye Contact: Other (INTERMITTENT) Motor Activity: Normal Affect: Constricted Orientation Impairment: Place, Time Memory Impairment: Short-Term, Long-term Attention: Normal Hallucinations: None Other: None Suicidality: None Homicidality: None Delusions: None Behavior: Cooperative Insight: Poor Judgment: Poor Treatment DEPAKOTE ER 500 MG P.O. Q.H.S. ATIVAN 1 MG P.O. TID PAXIL 30 MG P.O. Q.H.S. TRAZODONE 50 MG P.O. Q.H.S. PRN BENZTROPINE 1 MG P.O. B.I.D. THORAZINE 50 MG P.O. Q.6 PRN BENADRYL 50 MG P.O. Q.6 PRN Monitoring by Staff, Milieu, Group, and Individual counseling as needed -- According to the [place] Suicide Assessment the above named patient is on LOS. [id number]-Patient is unable to formulate a plan to safely meet their basic needs of food, clothing, and [facility] due to the severity of their mental illness. We are still titrating medications to an effective dose while maintaining a therapeutic environment to prevent decompensation and readmission. Total time spent 35 minutes REVIEW OF Clinical notes [X ] RN notes [X] PCT documentation [X] SW notes Labs [ X] Medications [X] Care trends/care activity [X] Vitals [X] DISCUSSION WITH window draper [X] Staff SW [X] Treatment Team [X] Discharge UNSURE AT THIS TIME. DISCHARGE BACK TO HOME WITH HIS BROTHER. CODING VISIT-PSYCHIATRY Date of Service: Sep 28, 2024 Billing Provider: HEMA SMITH APRN Psych Common Visit Codes: [id number] INP/OBS CARE(Mod) Problem Qualifiers (1) Psychosis: HEMA SMITH APRN Sep 28, 2024 12:40
--- NOTE | 2024-09-28 15:44 | PROGRESS NOTE- Residence ---
Progress Note - Resident Providers to CC Resident Creating Document: PAIGE PASTRANA, RES ~ Antibiotic Timeout Antibiotic Ordered?: No Subjective The patient was seen and examined at bedside today. He was sleeping. He has no new complaints. Objective Vital Signs Date Time Temp Pulse Resp B/P (MAP) Pulse Ox O2 Delivery O2 Flow Rate FiO2 09/28/24 08:00 97.3 65 16 119/70 (86) 99 Room Air Adult male, alert and oriented, not in acute distress Head: Normocephalic with an atraumatic Eyes: Pupils- 3mm, reacting to light, conjunctiva- anicteric Nose and throat: No polyps, septum- normal, no mucosal ulcers Neck: Supple, no lymphadenopathy, no carotid bruit Respiratory: No use of accessory muscles of respiration, Bilateral normal vesiscular breath sounds heard. No wheeze, rhochi or creps Cardiac: S1-S2 heard, rythm regular, no gallop/murmur Abdomen: non distended, no tenderness, no organomegaly, bowel sounds - heard Extremities: no clubbing, no pedal edema, no deformities, peripheral pulses - 2+ Skin: warm and dry, no rash, no purpura Neuro: No focal deficit, gross cranial nerve exam - normal Assessment Assessment 54-year-old male patient admitted to mental health unit due to auditory and vi sual hallucinations, confusion and suicidal ideations. Placed on 5150 for gravely disabled. Plan Plan Schizophrenia Psychosis Graft disability History of bipolar disorder Continue management as per psychiatrist. Constipation MiraLax 17 g HS. Dulcolax 10 mg TID PRN suppository. Patient denied any medical conditions now. Disposition: Hospitalist service we will continue to monitor the patient during the course of his hospital stay. Paige Pastrana MD Internal Medicine Resident, PGY-2 Date of Service: Sep 28, 2024 Billing Provider: ROCIO PALMER MD Common Visit Codes: [id number] INP/OBS CARE(MOD) PAIGE PASTRANA, RES Sep 28, 2024 15:44 ROCIO PALMER MD Oct 11, 2024 20:35
[2024-09-28 19:00] VITALS: RESP 16; O2SAT 98
[2024-09-28 20:00] VITALS: BP 112/64; PULSE 74; RESP 16; TEMP 97.8; O2SAT 98
[2024-09-29 07:00] VITALS: RESP 15; O2SAT 98
[2024-09-29 08:00] VITALS: BP 133/52; PULSE 58; RESP 15; TEMP 97; O2SAT 98
--- NOTE | 2024-09-29 12:56 | PROGRESS NOTE ---
Progress Note Dictate Providers to CC ~ Progress Note: admitted on a 5150 for GD Central Line/PICC still needed: N\\A Antibiotic Ordered?: N/A MRSA Education MRSA Education Provided to pt: N/A Objective Vitals Vital Signs Date Time Temp Pulse Resp B/P (MAP) Pulse Ox O2 Delivery O2 Flow Rate FiO2 09/29/24 08:00 97.0 58 15 133/52 (79) 98 Room Air Psychiatrist's Progress Note Date of Service: Sep 29, 2024 Notes CHART REVIEW Pancho is admitted on a 5150 for GD after he was brought into the ED to be evaluated after experiencing experiencing confusion and has not been able to take care of his basic needs such as showering or eating because of this. Denny is unable to state where he could find or obtain food and has lost 8lbs in less than a week.Pancho is currently living with his brother and mother in [place]. Pancho is on disability and receives around $800.00 per month on SSI. The pt denies having a significant other or children. The pt has a doctor that he sees at [facility] and will f/u with that provider upon discharge. Spoke with Jean Paul, pt's brother, at the request of pt. Jean Paul states that the pt has a history of Bipolar d/o and has experienced a significant increase in mh sx since a medication change in July. Jean Paul states that his brother has basically been catatonic over the last couple of weeks and stopped eating about one week ago. Jean Paul is concerned that the pt may have an underlying health issue and that he was recently referred to for a neuro consult and MRI. Pt appears to have a positive support system and care team. Pt will have these supports as well upon discharge. The pt is a poor historian, this remote mortgage underwriter was unable to obtain much information, however he does appreciate his brother, Jean Paul being able to share information and speak with staff about his symptoms. ASSESSMENT The patient was interviewed in the patient observation room. The patient was resting in his bed with 1:1 sitter at bedside. Patient ambulated x2 tot he hallway with sitter, and had gotten up for lunch. The patient endorses "I'm alright." Rm patient mood appears calm and cooperative during this visit, and is engaging. He is alert and oriented x 1 only, and doesn't know the location nor the date. According to the sitter, patient does not appear to be internally preoccupied during her time with him. The patient endorses no worsening mental health symptoms. Denies SI. Denies HI. Denies AVH. The patient endorses adequate sleep and food intake. The patient is stable no acute distress noted. The patient presents as confused, and distracted but calm and cooperative during this visit. Per staff report patient attended outside activity. Per staff report patient is medication compliant. Per staff report no abnormal behaviors. Will continue daily assessment and adjusting treatment as needed. Closely monitor behavior and response to medication during hospitalization. Mental Status Alert and oriented x 1, with baseline confusion. Mood is euthymic, affect is appropriate. Patient is pleasant, calm and cooperative. Denies AVH, No delusions. Patient's Status and Progress 5249 ends at 1500. Change status to voluntary. Likely DC to home with family. Family may decide to seek prison chronic care accomodations post discharge. Results Of any Diagn. Testing URINALYSIS NEGATIVE COVID NEGATIVE URINE TOX SCREEN NEGATIVE WBC 4.8 RBC 4.28 HEMOGLOBIN 13.3 HEMATOCRIT 39.4 PLATELET COUNT 127 SODIUM 143 POTASSIUM 3.3 CHLORIDE 104 ANION GAP 7 BUN 7 CREATININE 0.92 eGFR 85 CALCIUM 89.2 ALBUMIN 3.1 TRIGLYCERIDES 71 CHOLESTEROL 155 HDL 52 LDL 81 Appearnace: Other (Casual/patient scrub) Speech: Other (slowed, distracted) Eye Contact: Normal Motor Activity: Normal Affect: Other (appropriate/sleepy) Orientation Impairment: Person Memory Impairment: Short-Term, Long-term Attention: Distracted Hallucinations: None Other: None Homicidality: None Delusions: None Behavior: Cooperative, Withdrawn Insight: Poor Judgment: Poor Treatment DEPAKOTE ER 500 MG P.O. Q.H.S. ATIVAN 1 MG P.O. TID PAXIL 30 MG P.O. Q.H.S. TRAZODONE 50 MG P.O. Q.H.S. PRN BENZTROPINE 1 MG P.O. B.I.D. THORAZINE 50 MG P.O. Q.6 PRN BENADRYL 50 MG P.O. Q.6 PRN Monitoring by Staff, Milieu, Group, and Individual counseling as needed -- According to the [place] Suicide Assessment the above named patient is on LOS. [id number]-Patient is unable to formulate a plan to safely meet their basic needs of food, clothing, and mcfp due to the severity of their mental illness. We are still titrating medications to an effective dose while maintaining a therapeutic environment to prevent decompensation and readmission. Total time spent 35 minutes REVIEW OF Clinical notes [X ] RN notes [X] PCT documentation [X] SW notes Labs [ X] Medications [X] Care trends/care activity [X] Vitals [X] DISCUSSION WITH clinical fellow [X] Discharge UNSURE AT THIS TIME. DISCHARGE BACK TO HOME WITH HIS BROTHER. CODING VISIT-PSYCHIATRY Date of Service: Sep 29, 2024 Billing Provider: DARLING OSMAN APRN Psych Common Visit Codes: [id number] INP/OBS CARE(Mod) DARLING OSMAN APRN Sep 29, 2024 12:56
[2024-09-29 19:00] VITALS: RESP 16; O2SAT 97
[2024-09-29 20:00] VITALS: BP 95/51; PULSE 76; RESP 16; TEMP 97.5; O2SAT 97
[2024-09-30 07:00] VITALS: BP 114/61; PULSE 72; RESP 16; TEMP 98.4; O2SAT 98
--- NOTE | 2024-09-30 16:08 | PROGRESS NOTE ---
Progress Note Dictate Providers to CC ~ Central Line/PICC still needed: N\\A Antibiotic Ordered?: N/A MRSA Education MRSA Education Provided to pt: N/A Objective Vitals Vital Signs Date Time Temp Pulse Resp B/P (MAP) Pulse Ox O2 Delivery O2 Flow Rate FiO2 09/30/24 07:00 16 98 Room Air 09/30/24 07:00 98.4 72 114/61 (78) Problem\\Assessment\\Plan Problems/Diagnosis: (1) Gravely disabled (2) Psychosis Psychiatrist's Progress Note Notes CHART REVIEW Pancho is admitted on a 5150 for GD after he was brought into the ED to be evaluated after experiencing experiencing confusion and has not been able to take care of his basic needs such as showering or eating because of this. Denny is unable to state where he could find or obtain food and has lost 8lbs in less than a week.Pancho is currently living with his brother and mother in [place]. Pancho is on disability and receives around $800.00 per month on SSI. The pt denies having a significant other or children. The pt has a doctor that he sees at [facility] and will f/u with that provider upon discharge. Spoke with Jean Paul, pt's brother, at the request of pt. Jean Paul states that the pt has a history of Bipolar d/o and has experienced a significant increase in mh sx since a medication change in July. Jean Paul states that his brother has basically been catatonic over the last couple of weeks and stopped eating about one week ago. Jean Paul is concerned that the pt may have an underlying health issue and that he was recently referred to for a neuro consult and MRI. Pt appears to have a positive support system and care team. Pt will have these supports as well upon discharge. The pt is a poor historian, this telegraphic typewriter repairer was unable to obtain much information, however he does appreciate his brother, Jean Paul being able to share information and speak with staff about his symptoms. ASSESSMENT The patient was interviewed in the patient observation room. The patient was resting in his bed with 1:1 sitter at bedside. Sitter was discontinued sometime today as patient has improved. Patient ambulated x2 to the hallway with sitter in AM, and had gotten up for lunch. The patient endorses "I'm alright." Rm patient mood appears calm and cooperative during this visit, and is engaging. He is alert and oriented x 1 only, and doesn't know the location nor the date. According to the sitter, patient does not appear to be internally preoccupied during her time with him. The patient endorses no worsening mental health symptoms. Denies SI. Denies HI. Denies AVH. The patient endorses adequate sleep and food intake. The patient is stable no acute distress noted. The patient presents as confused, and distracted but calm and cooperative during this visit. Per staff report patient attended outside activity. Per staff report patient is medication compliant. Per staff report no abnormal behaviors. Will continue daily assessment and adjusting treatment as needed. Closely monitor behavior and response to medication during hospitalization. Mental Status Alert and oriented x 1, with baseline confusion. Mood is euthymic, affect is appropriate. Patient is pleasant, calm and cooperative. Denies AVH, No delusions. Patient's Status and Progress status to voluntary. Likely DC to home with family. Family may decide to seek dedicated intermodal truck driver chronic care accomodations post discharge. Results Of any Diagn. Testing URINALYSIS NEGATIVE COVID NEGATIVE URINE TOX SCREEN NEGATIVE WBC 4.8 RBC 4.28 HEMOGLOBIN 13.3 HEMATOCRIT 39.4 PLATELET COUNT 127 SODIUM 143 POTASSIUM 3.3 CHLORIDE 104 ANION GAP 7 BUN 7 CREATININE 0.92 eGFR 85 CALCIUM 89.2 ALBUMIN 3.1 TRIGLYCERIDES 71 CHOLESTEROL 155 HDL 52 LDL 81 Appearnace: Disheveled Speech: Tangential Eye Contact: Normal Motor Activity: Normal Affect: Full Mood: Euthymic Orientation Impairment: None Memory Impairment: None Attention: Normal Hallucinations: None Other: None Suicidality: None Homicidality: None Delusions: None Behavior: Cooperative, Withdrawn Insight: Poor Judgment: Poor Treatment DEPAKOTE ER 500 MG P.O. Q.H.S. ATIVAN 1 MG P.O. TID PAXIL 30 MG P.O. Q.H.S. TRAZODONE 50 MG P.O. Q.H.S. PRN BENZTROPINE 1 MG P.O. B.I.D. THORAZINE 50 MG P.O. Q.6 PRN BENADRYL 50 MG P.O. Q.6 PRN Monitoring by Staff, Milieu, Group, and Individual counseling as needed -- According to the [place] Suicide Assessment the above named patient is on LOS. [id number] is unable to formulate a plan to safely meet their basic needs of food, clothing, and correction due to the severity of their mental illness. We are still titrating medications to an effective dose while maintaining a therapeutic environment to prevent decompensation and readmission. Total time spent 35 minutes REVIEW OF Clinical notes [X ] RN notes [X] PCT documentation [X] SW notes Labs [ X] Medications [X] Care trends/care activity [X] Vitals [X] DISCUSSION WITH illuminator [X] Discharge UNSURE AT THIS TIME. DISCHARGE BACK TO HOME WITH HIS BROTHER. CODING VISIT-PSYCHIATRY Date of Service: Sep 30, 2024 Billing Provider: DARLING OSMAN APRN Psych Common Visit Codes: [id number] INP/OBS CARE(Mod) Problem Qualifiers (1) Psychosis: DARLING OSMAN APRN Sep 30, 2024 16:08
[2024-09-30 19:00] VITALS: RESP 16; O2SAT 95
--- NOTE | 2024-09-30 19:21 | PROGRESS NOTE- Residence ---
Progress Note - Resident Providers to CC Resident Creating Document: DANIEL MARION, RES ~ Antibiotic Timeout Antibiotic Ordered?: No Subjective Patient has been evaluated in mental health unit. The patient currently asymptomatic. Denies any chest pain, shortness of breath, palpitations, urinary or intestinal symptoms. He has no new complaints. Objective Vital Signs Date Time Temp Pulse Resp B/P (MAP) Pulse Ox O2 Delivery O2 Flow Rate FiO2 09/30/24 07:00 16 98 Room Air 09/30/24 07:00 98.4 72 114/61 (78) General: alert and oriented to place, person and time, not in apparent distress Head: Normocephalic with an atraumatic Eyes: Pupils- 3mm, reacting to light, conjunctiva- anicteric Nose and throat: No polyps, septum- normal, no mucosal ulcers Neck: Supple, no lymphadenopathy, no carotid bruit Respiratory: No use of accessory muscles of respiration, Bilateral normal vesiscular breath sounds heard. No wheeze, rhochi or creps Cardiac: S1-S2 heard, rhythm regular, Abdomen: non distended, no tenderness, no organomegaly, bowel sounds- heard Extremities: no clubbing, no pedal edema, no deformities, peripheral pulses- 2+ Skin: warm and dry, no rash, no purpura Neuro: No focal deficit, gross cranial nerve exam- normal Assessment Assessment A 54-year-old male patient admitted to mental health unit due to auditory and visual hallucinations, confusion and suicidal ideations. Placed on 5150 for gravely disabled. Plan Plan Schizophrenia Psychosis Graft disability History of bipolar disorder Continue management as per psychiatrist. Constipation MiraLax 17 g HS. Dulcolax 10 mg TID PRN suppository. Patient denied any medical conditions now. Disposition: Hospitalist service we will continue to monitor the patient during the course of his hospital stay. Nathan Marion MD Internal Medicine Resident, PGY-1 Date of Service: Sep 30, 2024 Billing Provider: ROCIO PALMER MD Common Visit Codes: [id number] INP/OBS CARE(HIGH) DANIEL MARION, JOSHUA Sep 30, 2024 19:21 ROCIO PALMER MD Oct 11, 2024 20:36
[2024-09-30 20:00] VITALS: BP 104/62; PULSE 73; RESP 16; TEMP 97.4; O2SAT 95
[2024-10-01 07:42] VITALS: BP 116/61; PULSE 85; RESP 16; TEMP 97.1; O2SAT 96
[2024-10-01 08:00] VITALS: RESP 16; O2SAT 96
--- NOTE | 2024-10-01 12:27 | PROGRESS NOTE ---
Progress Note Dictate Providers to CC ~ Antibiotic Ordered?: No MRSA Education MRSA Education Provided to pt: No Objective Vitals Vital Signs Date Time Temp Pulse Resp B/P (MAP) Pulse Ox O2 Delivery O2 Flow Rate FiO2 10/01/24 07:42 97.1 85 16 116/61 (79) 96 Room Air Problem\\Assessment\\Plan Problems/Diagnosis: (1) Psychosis (2) Mood disorder Psychiatrist's Progress Note Date of Service: Oct 01, 2024 Notes CHART REVIEW Pancho is admitted on a 5150 for GD after he was brought into the ED to be evaluated after experiencing experiencing confusion and has not been able to take care of his basic needs such as showering or eating because of this. Denny is unable to state where he could find or obtain food and has lost 8lbs in less than a week.Pancho is currently living with his brother and mother in [place]. Pancho is on disability and receives around $800.00 per month on SSI. The pt denies having a significant other or children. The pt has a doctor that he sees at [facility] and will f/u with that provider upon discharge. Spoke with Jean Paul, pt's brother, at the request of pt. Jean Paul states that the pt has a history of Bipolar d/o and has experienced a significant increase in mh sx since a medication change in July. Jean Paul states that his brother has basically been catatonic over the last couple of weeks and stopped eating about one week ago. Jean Paul is concerned that the pt may have an underlying health issue and that he was recently referred to for a neuro consult and MRI. Pt appears to have a positive support system and care team. Pt will have these supports as well upon discharge. The pt is a poor historian, this underwriter was unable to obtain much information, however he does appreciate his brother, Jean Paul being able to share information and speak with staff about his symptoms. ASSESSMENT The patient was interviewed in observation room. The patient was actively walking in hallway. The patient endorses "good." The patient endorses no worsening mental health symptoms. Denies SI.Denies HI. Denies AVH. The patient endorses adequate sleep and food intake. The patient is stable no acute distress noted. The patient presents as pleasantly confused, cooperative during session. Per staff report patient attended outside activity this AM. Per staff report patient is more balance on his feet we will discontinue [id number]. Per staff report patient is medication compliant. Per staff report no abnormal behaviors. Will continue daily assessment and adjusting treatment as needed. Closely monitor behavior and response to medication during hospitalization. We will attempt to get MRI today. Results Of any Diagn. Testing REVIEW OF LABS URINALYSIS NEGATIVE COVID NEGATIVE URINE TOX SCREEN NEGATIVE WBC 4.8 RBC 4.28 HEMOGLOBIN 13.3 HEMATOCRIT 39.4 PLATELET COUNT 127 SODIUM 143 POTASSIUM 3.3 CHLORIDE 104 ANION GAP 7 BUN 7 CREATININE 0.92 eGFR 85 CALCIUM 89.2 ALBUMIN 3.1 TRIGLYCERIDES 71 CHOLESTEROL 155 HDL 52 LDL 81 Appearnace: Other Speech: Impoverished Eye Contact: Other (INTERMITTENT) Motor Activity: Normal Affect: Constricted Orientation Impairment: Place, Time Memory Impairment: Short-Term, Long-term Attention: Normal Hallucinations: None Other: None Suicidality: None Homicidality: None Delusions: None Behavior: Cooperative Insight: Poor Judgment: Poor Treatment DEPAKOTE ER 500 MG P.O. Q.H.S. ATIVAN 1 MG P.O. TID PAXIL 30 MG P.O. Q.H.S. TRAZODONE 50 MG P.O. Q.H.S. PRN BENZTROPINE 1 MG P.O. B.I.D. THORAZINE 50 MG P.O. Q.6 PRN BENADRYL 50 MG P.O. Q.6 PRN Monitoring by Staff, Milieu, Group, and Individual counseling as needed -- According to the [place] Suicide Assessment the above named patient is on Q15 MINUTE CHECKS. [id number]-Patient is unable to formulate a plan to safely meet their basic needs of food, clothing, and fpc due to the severity of their mental illness. We are still titrating medications to an effective dose while maintaining a therapeutic environment to prevent decompensation and readmission. Total time spent 45 minutes REVIEW OF Clinical notes [X ] RN notes [X] PCT documentation [X] SW notes Labs [ X] Medications [X] Care trends/care activity [X] Vitals [X] DISCUSSION WITH breaker tender [X] Staff SW [X] Treatment Team [X] . Discharge UNSURE AT THIS TIME. DISCHARGE BACK TO HOME WITH HIS BROTHER OR SNF/REHAB FACILITY CODING VISIT-PSYCHIATRY Date of Service: Oct 01, 2024 Billing Provider: SARAH,HEMA NOTCH MACHINE OPERATOR Psych Common Visit Codes: [id number] INP/OBS CARE(Mod) Problem Qualifiers (1) Psychosis: HEMA SMITH APRN Oct 01, 2024 12:27
[2024-10-01] MEDS ORDERED: MIDAZolam 5mg/ml 2ml vial IV PRN ×2 (12:40→16:38)
[2024-10-01] MEDS: MIDAZolam 5mg/ml 2ml vial IV ONE (16:53)
[2024-10-01 17:31] VITALS: BP 99/53; PULSE 63; RESP 16; TEMP 97.9; O2SAT 96
[2024-10-01 19:00] VITALS: RESP 14; O2SAT 97
[2024-10-01 20:00] VITALS: BP 92/50; PULSE 63; RESP 14; TEMP 97.4; O2SAT 97
--- NOTE | 2024-10-01 21:39 | RADIOLOGY REPORT ---
EXAM: MR MRI HEAD INDICATION: R/O neurologic issues TECHNIQUE: Multiplanar, multisequence imaging of the brain without contrast. COMPARISON: MR MRI HEAD on DOS: 09/26/24 FINDINGS: [PARENCHYMA]: No acute infarct or hemorrhage. No mass effect or herniation. T2/FLAIR hyperintensitie s, which are nonspecific however most likely represent chronic microvascular ischemic change. [VENTRICLES]: No hydrocephalus. [EXTRA-AXIAL SPACES]: No extra-axial fluid collections. [FLOW VOIDS]: The flow voids are intact. [EXTRA-CRANIAL STRUCTURES]: The bony structures are intact. Trace fluid in bilateral mastoid air cell s. IMPRESSION: 1. No MR evidence of an acute intracranial abnormality.
[2024-10-02 08:00] VITALS: RESP 16; O2SAT 93
[2024-10-02 08:50] VITALS: BP 113/69; PULSE 66; RESP 16; TEMP 97.5; O2SAT 93
--- NOTE | 2024-10-02 16:02 | PROGRESS NOTE ---
Progress Note Dictate Providers to CC ~ Central Line/PICC still needed: N\\A Antibiotic Ordered?: No MRSA Education MRSA Education Provided to pt: No Objective Vitals Vital Signs Date Time Temp Pulse Resp B/P (MAP) Pulse Ox O2 Delivery O2 Flow Rate FiO2 10/02/24 08:50 97.5 66 16 113/69 (84) 93 Room Air Problem\\Assessment\\Plan Problems/Diagnosis: (1) Psychosis (2) Mood disorder Psychiatrist's Progress Note Date of Service: Oct 02, 2024 Notes CHART REVIEW Pancho is admitted on a 5150 for GD after he was brought into the ED to be evaluated after experiencing experiencing confusion and has not been able to take care of his basic needs such as showering or eating because of this. Denny is unable to state where he could find or obtain food and has lost 8lbs in less than a week.Pancho is currently living with his brother and mother in [place]. Pancho is on disability and receives around $800.00 per month on SSI. The pt denies having a significant other or children. The pt has a doctor that he sees at [facility] and will f/u with that provider upon discharge. Spoke with Jean Paul, pt's brother, at the request of pt. Jean Paul states that the pt has a history of Bipolar d/o and has experienced a significant increase in mh sx since a medication change in July. Jean Paul states that his brother has basically been catatonic over the last couple of weeks and stopped eating about one week ago. Jean Paul is concerned that the pt may have an underlying health issue and that he was recently referred to for a neuro consult and MRI. Pt appears to have a positive support system and care team. Pt will have these supports as well upon discharge. The pt is a poor historian, this production underwriter was unable to obtain much information, however he does appreciate his brother, Jean Paul being able to share information and speak with staff about his symptoms. ASSESSMENT The patient was interviewed in observation room. The patient was actively participating in activities. The patient endorses "I feel good." The patient endorses no worsening mental health symptoms. Denies SI.Denies HI. Denies AVH. The patient endorses adequate sleep and food intake. The patient is stable no acute distress noted. The patient presents as A/O x3 (unable to state month), calm, cooperative and engaged during session. Patient was able to state Dr. Chaidez was his psychiatrist. The patient has shown improvement with balance, cognition, and limited assistance with ADLs since admission Per staff report patient is medication compliant. Per staff report no abnormal behaviors. Will continue daily assessment and adjusting treatment as needed. Closely monitor behavior and response to medication during hospitalization. This production underwriter spoke with Dr. Chaidez in came up with a discharge plan. We will wean Denny off Ativan over the next 2-3 days and restart his risperidone 3 mg p.o. b.i.d. tonight. If patient continues to improve after restarting antipsychotics patient will discharge next Tuesday with an appointment to see Dr. Chaidez the same day of discharge. The patient would benefit from a SNF/rehabilitation placement. This production underwriter spoke with patients brother Jean Paul and he agrees. Results Of any Diagn. Testing REVIEW OF LABS EXAM: MR MRI HEAD INDICATION: R/O neurologic issues TECHNIQUE: Multiplanar, multisequence imaging of the brain without contrast. COMPARISON: MR MRI HEAD on DOS: 09/26/24 FINDINGS: [PARENCHYMA]: No acute infarct or hemorrhage. No mass effect or herniation. T2/FLAIR hyperintensities, which are nonspecific however most likely represent chronic microvascular ischemic change. [VENTRICLES]: No hydrocephalus. [EXTRA-AXIAL SPACES]: No extra-axial fluid collections. [FLOW VOIDS]: The flow voids are intact. [EXTRA-CRANIAL STRUCTURES]: The bony structures are intact. Trace fluid in bilateral mastoid air cells. IMPRESSION: 1. No MR evidence of an acute intracranial abnormality. ALYSIS NEGATIVE COVID NEGATIVE URINE TOX SCREEN NEGATIVE WBC 4.8 RBC 4.28 HEMOGLOBIN 13.3 HEMATOCRIT 39.4 PLATELET COUNT 127 SODIUM 143 POTASSIUM 3.3 CHLORIDE 104 ANION GAP 7 BUN 7 CREATININE 0.92 eGFR 85 CALCIUM 89.2 ALBUMIN 3.1 TRIGLYCERIDES 71 CHOLESTEROL 155 HDL 52 LDL 81 Appearnace: Other Speech: Other (CIRCUMSTANTIAL) Eye Contact: Normal Motor Activity: Normal Affect: Full Orientation Impairment: Place Memory Impairment: Long-term Attention: Normal Hallucinations: None Other: None Suicidality: None Homicidality: None Delusions: None Behavior: Cooperative Insight: Poor Judgment: Poor Treatment DEPAKOTE ER 500 MG P.O. Q.H.S. ATIVAN 1 MG P.O. TID PAXIL 30 MG P.O. Q.H.S. TRAZODONE 50 MG P.O. Q.H.S. PRN BENZTROPINE 1 MG P.O. B.I.D. THORAZINE 50 MG P.O. Q.6 PRN BENADRYL 50 MG P.O. Q.6 PRN Initiate RISPERIDONE 3 MG P.O. B.I.D. Monitoring by Staff, Milieu, Group, and Individual counseling as needed -- According to the [place] Suicide Assessment the above named patient is on Q15 MINUTE CHECKS. [id number]-Patient is unable to formulate a plan to safely meet their basic needs of food, clothing, and alf due to the severity of their mental illness. We are still titrating medications to an effective dose while maintaining a therapeutic environment to prevent decompensation and readmission. Total time spent 30 minutes REVIEW OF Clinical notes [X ] RN notes [X] PCT documentation [X] SW notes Labs [ X] Medications [X] Care trends/care activity [X] Vitals [X] DISCUSSION WITH consultant education [X] Staff SW [X] Treatment Team [X] Discharge UNSURE AT THIS TIME. DISCHARGE BACK TO HOME WITH HIS BROTHER OR SNF/REHAB FACILITY CODING VISIT-PSYCHIATRY Date of Service: Oct 02, 2024 Billing Provider: HEMA SMITH APRN Psych Common Visit Codes: [id number] INP/OBS CARE(Mod) Problem Qualifiers (1) Psychosis: HEMA SMITH APRN Oct 02, 2024 16:01
--- NOTE | 2024-10-02 16:19 | PROGRESS NOTE ---
Daily Progress Note Providers to CC ~ Antibiotic Timeout Antibiotic Ordered?: No Subjective Patient is seen in his room he had head MRI done which was unremarkable. P atient is still nonambulatory currently. Patient is having constipation passed stools couple of days back as per patient. No other concerns Objective Vital Signs Date Time Temp Pulse Resp B/P (MAP) Pulse Ox O2 Delivery O2 Flow Rate FiO2 10/02/24 08:50 97.5 66 16 113/69 (84) 93 Room Air MRI head -IMPRESSION: 1. No MR evidence of an acute intracranial abnormality. General-patient not in any acute distress, alert awake , age-appropriate, looks comfortable HEENT-atraumatic normocephalic, neck supple without elevated JVD, no thyromegaly or carotid bruit. No lymphadenopathy bilaterally. Eyes-no icterus or pallor seen in eyes Chest-clear to auscultation bilaterally, breathing nonlabored no tachypnea, no wheezing, no crepitation, no crackles. Heart-S1-S2 normal, regular heart rate no murmur Abdomen bowel sounds positive on auscultation, soft nondistended nontender no guarding, no rigidity Skin no active skin rash Neurology-grossly intact, nonfocal alert awake cooperated during physical examination Extremity- no pedal edema able to move all 4 extremities Problem\Assessment\Plan Problems/Diagnosis: (1) Psychosis Grave disability History of bipolar disorder continue management as per the psychiatrist. Hypokalemia The patient's potassium was 3.3. Replaced potassium. Monitor the patient's electrolytes. Patient is unable to ambulate MRI head unremarkable. I ordered MRI lumbar spine and thoracic spine in sed rate and procalcitonin we will follow the results from hospitalist team. Patient is constipated needs treatment for constipation KUB ordered today The patient voiced no acute medical complaints or concerns and none were voiced by nursing staff either The hospitalist team we will continue to follow the patient during the course of hospitalization Date of Service: Oct 02, 2024 Billing Provider: GABINO FRENCH MD Common Visit Codes: [id number] INP/OBS CARE(MOD) Problem Qualifiers (1) Psychosis: GABINO FRENCH MD Oct 02, 2024 16:19
--- NOTE | 2024-10-02 17:16 | RADIOLOGY REPORT ---
EXAM: DI ABDOMEN,SINGLE VIEW(KUB) HISTORY: Constipation COMPARISON: None TECHNIQUE: Supine view of the abdomen FINDINGS/IMPRESSION: Significant gas distention of the stomach. Correlate for gastroparesis.
[2024-10-02 19:06] VITALS: RESP 16; O2SAT 93
[2024-10-02 19:49] VITALS: BP 111/67; PULSE 70; RESP 16; TEMP 98.2; O2SAT 94
[2024-10-03] MEDS ORDERED: bisacodyl 10mg suppository rectal RC PRN (05:25)
[2024-10-03 07:14] VITALS: BP 110/64; PULSE 85; RESP 16; TEMP 97.6; O2SAT 95
[2024-10-03 08:20] VITALS: RESP 16; O2SAT 95
--- NOTE | 2024-10-03 13:33 | PROGRESS NOTE ---
Progress Note Dictate Providers to CC ~ Central Line/PICC still needed: N\\A Antibiotic Ordered?: No MRSA Education MRSA Education Provided to pt: No Objective Vitals Vital Signs Date Time Temp Pulse Resp B/P (MAP) Pulse Ox O2 Delivery O2 Flow Rate FiO2 10/03/24 08:20 16 95 Room Air 10/03/24 07:14 97.6 85 110/64 (79) Problem\\Assessment\\Plan Problems/Diagnosis: (1) Psychosis (2) Mood disorder Psychiatrist's Progress Note Date of Service: Oct 03, 2024 Notes CHART REVIEW Pancho is admitted on a 5150 for GD after he was brought into the ED to be evaluated after experiencing experiencing confusion and has not been able to take care of his basic needs such as showering or eating because of this. Denny is unable to state where he could find or obtain food and has lost 8lbs in less than a week.Pancho is currently living with his brother and mother in [place]. Pancho is on disability and receives around $800.00 per month on SSI. The pt denies having a significant other or children. The pt has a doctor that he sees at [facility] and will f/u with that provider upon discharge. Spoke with Jean Paul, pt's brother, at the request of pt. Jean Paul states that the pt has a history of Bipolar d/o and has experienced a significant increase in mh sx since a medication change in July. Jean Paul states that his brother has basically been catatonic over the last couple of weeks and stopped eating about one week ago. Jean Paul is concerned that the pt may have an underlying health issue and that he was recently referred to for a neuro consult and MRI. Pt appears to have a positive support system and care team. Pt will have these supports as well upon discharge. The pt is a poor historian, this video games storywriter was unable to obtain much information, however he does appreciate his brother, Jean Paul being able to share information and speak with staff about his symptoms. ASSESSMENT The patient was interviewed in observation room. The patient was actively participating in activities. The patient endorses "I feel good." Patient en dorses no worsening mental health symptoms. Denies SI.Denies HI. Denies AVH. The patient endorses adequate sleep and food intake. The patient is stable no acute distress noted. The patient presents as A/O x1, disorganized, and disengaged in session. Per staff report patient is medication compliant. Per staff report the patient noted with increased confusion since sta rting risperidone. Per staff report patient still need reminders and cues to attend to ADLS. Will continue daily assessment and adjusting treatment as needed. Closely monitor behavior and response to medication during hospitalization. Per medical team documentation: Patient is unable to ambulate MRI head unremarkable. I ordered MRI lumbar spine and thoracic spine in sed rate and procalcitonin we will follow the results from hospitalist team. We will continue to monitor patient's since restarting risperidone. Results Of any Diagn. Testing REVIEW OF LABS EXAM: MR MRI HEAD INDICATION: R/O neurologic issues TECHNIQUE: Multiplanar, multisequence imaging of the brain without contrast. COMPARISON: MR MRI HEAD on DOS: 09/26/24 FINDINGS: [PARENCHYMA]: No acute infarct or hemorrhage. No mass effect or herniation. T2/FLAIR hyperintensities, which are nonspecific however most likely represent chronic microvascular ischemic change. [VENTRICLES]: No hydrocephalus. [EXTRA-AXIAL SPACES]: No extra-axial fluid collections. [FLOW VOIDS]: The flow voids are intact. [EXTRA-CRANIAL STRUCTURES]: The bony structures are intact. Trace fluid in bilateral mastoid air cells. IMPRESSION: 1. No MR evidence of an acute intracranial abnormality. ALYSIS NEGATIVE COVID NEGATIVE URINE TOX SCREEN NEGATIVE WBC 4.8 RBC 4.28 HEMOGLOBIN 13.3 HEMATOCRIT 39.4 PLATELET COUNT 127 SODIUM 143 POTASSIUM 3.3 CHLORIDE 104 ANION GAP 7 BUN 7 CREATININE 0.92 eGFR 85 CALCIUM 89.2 ALBUMIN 3.1 TRIGLYCERIDES 71 CHOLESTEROL 155 HDL 52 LDL 81 Appearnace: Other Speech: Tangential, Impoverished Eye Contact: Avoidant Motor Activity: Normal Affect: Constricted Orientation Impairment: Place, Time Memory Impairment: Short-Term, Long-term Attention: Distracted Hallucinations: None Other: None Suicidality: None Homicidality: None Delusions: None Behavior: Bizarre Insight: Poor Judgment: Poor Treatment DEPAKOTE ER 500 MG P.O. Q.H.S. ATIVAN 1 MG P.O. TID PAXIL 30 MG P.O. Q.H.S. TRAZODONE 50 MG P.O. Q.H.S. PRN BENZTROPINE 1 MG P.O. B.I.D. THORAZINE 50 MG P.O. Q.6 PRN BENADRYL 50 MG P.O. Q.6 PRN Decrease RISPERIDONE 1 MG P.O. B.I.D. Monitoring by Staff, Milieu, Group, and Individual counseling as needed -- According to the [place] Suicide Assessment the above named patient is on Q15 MINUTE CHECKS. [id number]-Patient is unable to formulate a plan to safely meet their basic needs of food, clothing, and mcc due to the severity of their mental illnes s. We are still titrating medications to an effective dose while maintaining a therapeutic environment to prevent decompensation and readmission. Total time spent 30 minutes REVIEW OF Clinical notes [X ] RN notes [X] PCT documentation [X] SW notes Labs [ X] Medications [X] Care trends/care activity [X] Vitals [X] DISCUSSION WITH java programming professor [X] Staff SW [X] Treatment Team [X] Discharge UNSURE AT THIS TIME. DISCHARGE BACK TO HOME ONCE STABLE CODING VISIT-PSYCHIATRY Date of Service: Oct 03, 2024 Billing Provider: HEMA SMITH APRN Psych Common Visit Codes: [id number] INP/OBS CARE(Mod) Problem Qualifiers (1) Psychosis: HEMA SMITH APRN Oct 03, 2024 13:33
[2024-10-03 19:00] VITALS: RESP 16; O2SAT 96
[2024-10-03 20:00] VITALS: BP 105/59; PULSE 69; RESP 16; TEMP 97.6; O2SAT 96
[2024-10-04 07:00] VITALS: RESP 15; O2SAT 97
[2024-10-04 08:00] VITALS: BP 110/73; PULSE 89; RESP 15; TEMP 97.2; O2SAT 97
--- NOTE | 2024-10-04 16:24 | PROGRESS NOTE ---
Progress Note Dictate Providers to CC ~ Central Line/PICC still needed: N\\A Antibiotic Ordered?: No MRSA Education MRSA Education Provided to pt: No Objective Vitals Vital Signs Date Time Temp Pulse Resp B/P (MAP) Pulse Ox O2 Delivery O2 Flow Rate FiO2 10/04/24 08:00 97.2 89 15 110/73 (85) 97 Room Air Problem\\Assessment\\Plan Problems/Diagnosis: (1) Psychosis (2) Mood disorder Psychiatrist's Progress Note Date of Service: Oct 04, 2024 Notes CHART REVIEW Pancho is admitted on a 5150 for GD after he was brought into the ED to be evaluated after experiencing experiencing confusion and has not been able to take care of his basic needs such as showering or eating because of this. Denny is unable to state where he could find or obtain food and has lost 8lbs in less than a week.Pancho is currently living with his brother and mother in [place]. Pancho is on disability and receives around $800.00 per month on SSI. The pt denies having a significant other or children. The pt has a doctor that he sees at [facility] and will f/u with that provider upon discharge. Spoke with Jean Paul, pt's brother, at the request of pt. Jean Paul states that the pt has a history of Bipolar d/o and has experienced a significant increase in mh sx since a medication change in July. Jean Paul states that his brother has basically been catatonic over the last couple of weeks and stopped eating about one week ago. Jean Paul is concerned that the pt may have an underlying health issue and that he was recently referred to for a neuro consult and MRI. Pt appears to have a positive support system and care team. Pt will have these supports as well upon discharge. The pt is a poor historian, this designer/writer was unable to obtain much information, however he does appreciate his brother, Jean Paul being able to share information and speak with staff about his symptoms. ASSESSMENT The patient was interviewed in observation room. The patient was actively sitting edge of bed. The patient endorses "okay." The patient endorses no worsening mental health symptoms. Denies SI. Denies HI. Denies AVH. The patient is stable no acute distress noted. The patient presents as A/O x1- 2, disorganized, and disengaged in session. Per staff report patient is medication compliant. Per staff report no abnormal behaviors. Per staff report patient participated in outside group activities and showered. The patient has shown improvement since admission. Will continue daily assessment and adjusting treatment as needed. Closely monitor behavior and response to medication during hospitalization. Results Of any Diagn. Testing REVIEW OF LABS EXAM: DI ABDOMEN,SINGLE VIEW(KUB) HISTORY: Constipation COMPARISON: None TECHNIQUE: Supine view of the abdomen FINDINGS/IMPRESSION: Significant gas distention of the stomach. Correlate for gastroparesis. : MR MRI HEAD INDICATION: R/O neurologic issues TECHNIQUE: Multiplanar, multisequence imaging of the brain without contrast. COMPARISON: MR MRI HEAD on DOS: 09/26/24 FINDINGS: [PARENCHYMA]: No acute infarct or hemorrhage. No mass effect or herniation. T2/FLAIR hyperintensities, which are nonspecific however most likely represent chronic microvascular ischemic change. [VENTRICLES]: No hydrocephalus. [EXTRA-AXIAL SPACES]: No extra-axial fluid collections. [FLOW VOIDS]: The flow voids are intact. [EXTRA-CRANIAL STRUCTURES]: The bony structures are intact. Trace fluid in bilateral mastoid air cells. IMPRESSION: 1. No MR evidence of an acute intracranial abnormality. ALYSIS NEGATIVE COVID NEGATIVE URINE TOX SCREEN NEGATIVE WBC 4.8 RBC 4.28 HEMOGLOBIN 13.3 HEMATOCRIT 39.4 PLATELET COUNT 127 SODIUM 143 POTASSIUM 3.3 CHLORIDE 104 ANION GAP 7 BUN 7 CREATININE 0.92 eGFR 85 CALCIUM 89.2 ALBUMIN 3.1 TRIGLYCERIDES 71 CHOLESTEROL 155 HDL 52 LDL 81 Appearnace: Other Speech: Tangential, Impoverished Eye Contact: Other (INTERMITTENT) Motor Activity: Normal Affect: Constricted Orientation Impairment: Place, Time Memory Impairment: Short-Term, Long-term Attention: Normal Hallucinations: None Other: None Suicidality: None Homicidality: None Delusions: None Behavior: Cooperative Insight: Poor Judgment: Poor Treatment DEPAKOTE ER 500 MG P.O. Q.H.S. PAXIL 30 MG P.O. Q.H.S. TRAZODONE 50 MG P.O. Q.H.S. PRN BENZTROPINE 1 MG P.O. B.I.D. THORAZINE 50 MG P.O. Q.6 PRN BENADRYL 50 MG P.O. Q.6 PRN RISPERIDONE 1 MG P.O. B.I.D. Monitoring by Staff, Milieu, Group, and Individual counseling as needed -- According to the [place] Suicide Assessment the above named patient is on Q15 MINUTE CHECKS. [id number]-Patient is unable to formulate a plan to safely meet their basic needs of food, clothing, and nursing home due to the severity of their mental illness. We are still titrating medications to an effective dose while maintaining a therapeutic environment to prevent decompensation and readmission. Total time spent 35 minutes REVIEW OF Clinical notes [X ] RN notes [X] PCT documentation [X] SW notes Labs [ X] Medications [X] Care trends/care activity [X] Vitals [X] DISCUSSION WITH lidding machine operator [X] Staff SW [X] Treatment Team [X] Discharge UNSURE AT THIS TIME. DISCHARGE BACK TO HOME ONCE STABLE CODING VISIT-PSYCHIATRY Date of Service: Oct 04, 2024 Billing Provider: HEMA SMITH APRN Psych Common Visit Codes: [id number] INP/OBS CARE(Mod) Problem Qualifiers (1) Psychosis: HEMA SMITH APRN Oct 04, 2024 16:24
[2024-10-04 19:00] VITALS: RESP 14; O2SAT 96
--- NOTE | 2024-10-04 19:05 | PROGRESS NOTE- Residence ---
Progress Note - Resident Providers to CC Resident Creating Document: OZZY BARRON RES ~ Antibiotic Timeout Antibiotic Ordered?: No Subjective Patient seen and examined at bedside. Denies headaches, dizziness, nausea, vomiting, diarrhea, fever, chills. No other concerns or complaints at this time Objective Vital Signs Date Time Temp Pulse Resp B/P (MAP) Pulse Ox O2 Delivery O2 Flow Rate FiO2 10/04/24 08:00 97.2 89 15 110/73 (85) 97 Room Air General: Awake and Alert, no acute distress. HEENT: Conjunctiva pink, Sclera clear, Mucus Membranes moist. Neck: Supple without masses and tenderness. Resp: Unlabored. Equal breath sounds bilaterally. Heart: Regular rhythm, normal S1 and S2, no rub, murmur or gallop. Abdomen: Soft and non tender no organomegaly. Normal bowel sounds x4 quadrant normoactive. No guarding or rigidity. Extremities: Normal ROM, no swelling, nontender. No cyanosis,clubbing or edema. MOLD FORMS BUILDER: No gross motor or sensory abnormalities. Skin: Warm and Dry. Assessment Assessment A 54-year-old male patient admitted to mental health unit due to auditory and visual hallucinations, confusion and suicidal ideations. Placed on 5150 for gravely disabled. Plan Plan Schizophrenia Psychosis Graft disability History of bipolar disorder Medical concerns or complaints at this time. Management per psychiatrist, hospitalist team will continue to follow. Date of Service: Oct 04, 2024 Billing Provider: ROCIO PALMER MD Common Visit Codes: [id number] INP/OBS CARE(MOD) OZZY BARRON RES Oct 04, 2024 19:05 ROCIO PALMER MD Oct 11, 2024 20:36
[2024-10-04 20:00] VITALS: BP 113/63; PULSE 65; RESP 14; TEMP 97.2; O2SAT 96
[2024-10-05 07:00] VITALS: RESP 15; O2SAT 97
[2024-10-05 08:15] VITALS: BP 108/62; PULSE 72; RESP 16; TEMP 97.1; O2SAT 97
--- NOTE | 2024-10-05 11:12 | PROGRESS NOTE ---
Progress Note Dictate Providers to CC ~ Central Line/PICC still needed: N\\A Antibiotic Ordered?: No MRSA Education MRSA Education Provided to pt: No Objective Vitals Vital Signs Date Time Temp Pulse Resp B/P (MAP) Pulse Ox O2 Delivery O2 Flow Rate FiO2 10/05/24 08:15 97.1 72 16 108/62 (77) 97 Room Air Problem\\Assessment\\Plan Problems/Diagnosis: (1) Psychosis (2) Mood disorder Psychiatrist's Progress Note Date of Service: Oct 05, 2024 Notes CHART REVIEW Pancho is admitted on a 5150 for GD after he was brought into the ED to be evaluated after experiencing experiencing confusion and has not been able to take care of his basic needs such as showering or eating because of this. Denny is unable to state where he could find or obtain food and has lost 8lbs in less than a week.Pancho is currently living with his brother and mother in [place]. Pancho is on disability and receives around $800.00 per month on SSI. The pt denies having a significant other or children. The pt has a doctor that he sees at [facility] and will f/u with that provider upon discharge. Spoke with Jean Paul, pt's brother, at the request of pt. Jean Paul states that the pt has a history of Bipolar d/o and has experienced a significant increase in mh sx since a medication change in July. Jean Paul states that his brother has basically been catatonic over the last couple of weeks and stopped eating about one week ago. Jean Paul is concerned that the pt may have an underlying health issue and that he was recently referred to for a neuro consult and MRI. Pt appears to have a positive support system and care team. Pt will have these supports as well upon discharge. The pt is a poor historian, this marketing underwriter was unable to obtain much information, however he does appreciate his brother, Jean Paul being able to share information and speak with staff about his symptoms. ASSESSMENT The patient was interviewed in observation room. The patient was actively sitting edge of bed, tearful. The patient endorses "I am sad, I thought I was going home today." The patient endorses no worsening mental health symptoms. Denies SI. Denies HI. Denies AVH. The patient is stable no acute distress noted. The patient presents as a bit confused, sad (thought he was going to be discharged today), engaged in session. Per staff report patient is medication compliant. Per staff report no abnormal behaviors. Will continue daily assessment and adjusting treatment as needed. Closely monitor behavior and response to medication during hospitalization. The patient will be discharged next Tuesday and appointment scheduled to see Dr. Chaidez same day of discharge. Collateral from Jean Paul, patient's brother. Jean Paul endorses that the patient and his mom will be moving closer to him with in the next month so that he can more supportive to both the patient and his mom. Jean Paul agrees with the patient being discharged next Tuesday. Results Of any Diagn. Testing REVIEW OF LABS EXAM: DI ABDOMEN,SINGLE VIEW(KUB) HISTORY: Constipation COMPARISON: None TECHNIQUE: Supine view of the abdomen FINDINGS/IMPRESSION: Significant gas distention of the stomach. Correlate for gastroparesis. : MR MRI HEAD INDICATION: R/O neurologic issues TECHNIQUE: Multiplanar, multisequence imaging of the brain without contrast. COMPARISON: MR MRI HEAD on DOS: 09/26/24 FINDINGS: [PARENCHYMA]: No acute infarct or hemorrhage. No mass effect or herniation. T2/FLAIR hyperintensities, which are nonspecific however most likely represent chronic microvascular ischemic change. [VENTRICLES]: No hydrocephalus. [EXTRA-AXIAL SPACES]: No extra-axial fluid collections. [FLOW VOIDS]: The flow voids are intact. [EXTRA-CRANIAL STRUCTURES]: The bony structures are intact. Trace fluid in bilateral mastoid air cells. IMPRESSION: 1. No MR evidence of an acute intracranial abnormality. ALYSIS NEGATIVE COVID NEGATIVE URINE TOX SCREEN NEGATIVE WBC 4.8 RBC 4.28 HEMOGLOBIN 13.3 HEMATOCRIT 39.4 PLATELET COUNT 127 SODIUM 143 POTASSIUM 3.3 CHLORIDE 104 ANION GAP 7 BUN 7 CREATININE 0.92 eGFR 85 CALCIUM 89.2 ALBUMIN 3.1 TRIGLYCERIDES 71 CHOLESTEROL 155 HDL 52 LDL 81 Appearnace: Other Speech: Other (CIRCUMSTANTIAL) Eye Contact: Other (INTERMITTENT) Motor Activity: Normal Affect: Constricted Mood: Other (SAD) Orientation Impairment: Place Memory Impairment: Short-Term, Long-term Attention: Normal Hallucinations: None Other: None Suicidality: None Homicidality: None Delusions: None Behavior: Cooperative Insight: Poor Judgment: Poor Treatment We will increase risperidone while monitoring to see if patient has a relapse of catatonia. DEPAKOTE ER 500 MG P.O. Q.H.S. PAXIL 30 MG P.O. Q.H.S. TRAZODONE 50 MG P.O. Q.H.S. PRN BENZTROPINE 1 MG P.O. B.I.D. THORAZINE 50 MG P.O. Q.6 PRN BENADRYL 50 MG P.O. Q.6 PRN Increase RISPERIDONE 1.5MG P.O. B.I.D. Monitoring by Staff, Milieu, Group, and Individual counseling as needed -- According to the [place] Suicide Assessment the above named patient is on Q15 MINUTE CHECKS. [id number]-Patient is unable to formulate a plan to safely meet their basic needs of food, clothing, and fci due to the severity of their mental illness. We are still titrating medications to an effective dose while maintaining a therapeutic environment to prevent decompensation and readmission. Total time spent 40 minutes REVIEW OF Clinical notes [X ] RN notes [X] PCT documentation [X] SW notes Labs [ X] Medications [X] Care trends/care activity [X] Vitals [X] DISCUSSION WITH supervisor dimension warehouse [X] Staff SW [X] Treatment Team [X] Discharge UNSURE AT THIS TIME. DISCHARGE BACK TO HOME ONCE ONCE STABLE. CODING VISIT-PSYCHIATRY Date of Service: Oct 05, 2024 Billing Provider: HEMA SMITH APRN Psych Common Visit Codes: [id number] INP/OBS CARE(Mod) Problem Qualifiers (1) Psychosis: HEMA SMITH APRN Oct 05, 2024 11:12
[2024-10-05 19:00] VITALS: RESP 16; O2SAT 92
[2024-10-05 20:00] VITALS: BP 136/70; PULSE 84; RESP 16; TEMP 98.6; O2SAT 97
[2024-10-06 07:00] VITALS: RESP 14; O2SAT 99
[2024-10-06 08:28] VITALS: BP 124/76; PULSE 85; RESP 14; TEMP 97.2; O2SAT 99
--- NOTE | 2024-10-06 14:25 | PROGRESS NOTE ---
Daily Progress Note Providers to CC ~ Antibiotic Timeout Antibiotic Ordered?: No Subjective Chief complaint I am fine everybody is nice to me but some of the staff are not nice to some of the other patients Objective Vital Signs Date Time Temp Pulse Resp B/P (MAP) Pulse Ox O2 Delivery O2 Flow Rate FiO2 10/06/24 08:28 97.2 85 14 124/76 (92) 99 Room Air Patient is alert and oriented x3 no acute distress lying down comfortably speaking in full sentences HEENT normocephalic nontraumatic head CVS first and second heart sounds are regular rate rhythm no murmurs gallops or rubs Respiratory system is clear to auscultate bilaterally no rales rhonchi crackles or wheezing Abdomen is soft bowel sounds are positive scaphoid nontender nondistended Extremities no clubbing cyanosis or edema Problem\Assessment\Plan Problems/Diagnosis: (1) Psychosis Grave disability History of bipolar disorder continue management as per the psychiatrist. Hypokalemia The patient's potassium was 3.3. Replaced potassium. Monitor the patient's electrolytes. Patient is unable to ambulate MRI head unremarkable. I ordered MRI lumbar spine and thoracic spine in sed rate and procalcitonin we will follow the results from hospitalist team. Patient is constipated needs treatment for constipation KUB ordered today The patient voiced no acute medical complaints or concerns and none were voiced by nursing staff either The hospitalist team we will continue to follow the patient during the course of hospitalization Date of Service: Oct 06, 2024 Billing Provider: KEVIN GARCÍA MD Common Visit Codes: [id number] INP/OBS CARE(LOW) Problem Qualifiers (1) Psychosis: KEVIN GARCÍA MD Oct 06, 2024 14:25
[2024-10-06 19:00] VITALS: RESP 16; O2SAT 97
--- NOTE | 2024-10-06 19:16 | PROGRESS NOTE ---
Progress Note Dictate Providers to CC ~ Progress Note: HPI: Admitted for grave disability not taking care of himself or meeting basic needs. losing weights on disability living with brother and mother in [place]. catatonic has been slowly resolving. history bipolar disorder Today on Assessment: Friendly, confused, oriented to self and location (in the hospital), not fully oriented to situation, not oriented to date. Engaged when interviewed. Has a pos itive visit with his family Psychiatric Medications: Risperidone 1.5 mg twice daily Lorazepam 0.25 mg twice daily Depakote 500 mg qhs paroxetine 30 mg HS Recent PRNS: Side Effects: Denies No evidence of TD, EPS AIMs: 0 Review of Psychiatric Symptoms: Mood: denies depression, good Suicide/self-harm: denies Sleep: good (denies concerns) Appetite: hungry (eating three meals plus snacks) Energy: adequate, less time in bed Anxiety: denies Irritability: denies Homicidal/Anger: denies Hallucinations/Paranoia: denies Trauma symptoms: denies Symptoms related to substance withdrawal: denies Mental Status Evaluation General Appearance: street clothes, no apparent distress, appropriately groomed Eye contact: consistent with social norms Demeanor: cooperative, pleasant Orientation: to person, place, time, situation Speech: Appropriate rate/rhythm/volume Psychomotor Activity: within normal range Abnormal Body Movements: none observed Gait: steady Mood: good (euthymic) Affect: constricted Suicidality: denies suicidal ideation Homicidally: denies Thought content: consistent with social norms Thought process: goal-directed Thought perceptions: no perceptual disorder noted Memory: appears intact Attention: appear attentive Insight: fair Judgment: fair Current Medical Problems: Constipation- see medication list Medical History Cardiac HX: Denies TBI Hx: denies Seizure Hx: denies CRISTHIAN Hx: denies - - Diagnoses Catatonia Psychosis NOS Mood disorder - Assessment Remains confused, Catatonia partially resolved. No changes to treatment plan indicated. Safety risk: low risk of imminent self-harm, low risk of externalized violent behaviors Plan Risperidone 1.5 mg twice daily Lorazepam 0.25 mg twice daily Depakote 500 mg qhs paroxetine 30 mg HS Continue Q15 min checks Continue Groups/Milieu Engagement Discharge Plan: TUESDAY to home with scheduled follow ups for outpatient therapy and medication Spent approximately 30 minutes reviewing records and test results, assessing and treatment planning, completing care coordination and documenting the encounter. Discussed risks, including possible adverse effects, and benefits of treatment recommendations including no treatment. Voice recognition software may have been used to dictate this note. There may be errors due to use of such software. Reporting of serious errors is appreciated. Antibiotic Ordered?: No Objective Vitals Vital Signs Date Time Temp Pulse Resp B/P (MAP) Pulse Ox O2 Delivery O2 Flow Rate FiO2 10/06/24 08:28 97.2 85 14 124/76 (92) 99 Room Air CODING VISIT-PSYCHIATRY Date of Service: Oct 06, 2024 Billing Provider: BOAZ BENNETT DNP Psych Common Visit Codes: [id number] INP/OBS CARE(Mod) BOAZ BENNETT DNP Oct 06, 2024 19:16
[2024-10-06 20:17] VITALS: BP 120/68; PULSE 89; RESP 16; TEMP 97.5; O2SAT 97
[2024-10-07 08:00] VITALS: BP 124/71; PULSE 102; RESP 16; TEMP 97.3; O2SAT 96
[2024-10-07 08:27] VITALS: RESP 16; O2SAT 96
--- NOTE | 2024-10-07 17:41 | PROGRESS NOTE ---
Progress Note Dictate Providers to CC ~ Progress Note: HPI: Admitted for grave disability not taking care of himself or meeting basic needs. losing weights on disability living with brother and mother in [place]. catatonic has been slowly resolving. history bipolar disorder Today on Assessment: Friendly, confused, oriented to self and location (in the hospital), not fully oriented to the situation, not oriented to date. Engaged in a discussion- talked about his appreciation for [employer]/music, that he is looking forward to going home to drive his new car I havent driven a car in 15 years. Discussed that he would like to have a beer to chill out from the hallucinations (denies history of alcohol abuse). Psychiatric Medications: Risperidone 1.5 mg twice daily Lorazepam 0.25 mg twice daily Depakote 500 mg qhs paroxetine 30 mg HS Recent PRNS: Side Effects: Denies No evidence of TD, EPS AIMs: 0 Review of Psychiatric Symptoms: Mood: low, "because I have been cooped up here for four days Suicide/self-harm: denies Sleep: good (denies concerns) Appetite: hungry (eating three meals plus snacks) Energy: adequate, less time in bed Anxiety: up there r/t hallucinations Irritability: denies Homicidal/Anger: denies Hallucinations/Paranoia: endorses that he has been hallucinating- voices people fighting just outside of my door (state she cant tell who they are or what they are up to but its a physical altercation) Trauma symptoms: denies Symptoms related to substance withdrawal: denies Mental Status Evaluation General Appearance: street clothes, no apparent distress, appropriately groomed Eye contact: consistent with social norms Demeanor: cooperative, pleasant Orientation: to person, place, Speech: Appropriate rate/rhythm/volume Psychomotor Activity: within normal range Abnormal Body Movements: none observed Gait: steady Mood: good (euthymic) Affect: constricted Suicidality: denies suicidal ideation Homicidally: denies Thought content: delusional Thought process: goal-directed Thought perceptions: auditory hallucinations Memory: appears intact Attention: appear attentive Insight: fair Judgment: fair Current Medical Problems: Constipation- see medication list Medical History Cardiac HX: Denies TBI Hx: denies Seizure Hx: denies CRISTHIAN Hx: denies - - Diagnoses Catatonia Psychosis NOS Mood disorder - Assessment Remains confused, pleasant on assessment, AH endorsed today, Catatonia partially resolved. No changes to treatment plan indicated. Safety risk: low risk of imminent self-harm, low risk of externalized violent behaviors Plan Risperidone 1.5 mg twice daily Lorazepam 0.25 mg twice daily Depakote 500 mg qhs paroxetine 30 mg HS Continue Q15 min checks Continue Groups/Milieu Engagement Discharge Plan: TUESDAY to home with scheduled follow ups for outpatient therapy and medication Spent approximately 30 minutes reviewing records and test results, assessing and treatment planning, completing care coordination and documenting the encounter. Discussed risks, including possible adverse effects, and benefits of treatment recommendations including no treatment. Voice recognition software may have been used to dictate this note. There may be errors due to use of such software. Reporting of serious errors is appreciated. Antibiotic Ordered?: No Objective Vitals Vital Signs Date Time Temp Pulse Resp B/P (MAP) Pulse Ox O2 Delivery O2 Flow Rate FiO2 10/07/24 08:27 16 96 Room Air 10/07/24 08:00 97.3 102 124/71 (88) CODING VISIT-PSYCHIATRY Date of Service: Oct 07, 2024 Billing Provider: BOAZ BENNETT DNP Psych Common Visit Codes: [id number] INP/OBS CARE(Low), [id number] INP/OBS CARE(Mod) BOAZ BENNETT DNP Oct 07, 2024 17:41
[2024-10-07 19:00] VITALS: RESP 18; O2SAT 98
[2024-10-07 20:00] VITALS: BP 137/76; PULSE 90; RESP 18; TEMP 97.1; O2SAT 98
[2024-10-08 07:00] VITALS: RESP 20; O2SAT 92
[2024-10-08 08:00] VITALS: BP 114/67; PULSE 92; RESP 16; TEMP 96.8; O2SAT 92
--- NOTE | 2024-10-08 13:59 | PROGRESS NOTE ---
Daily Progress Note Providers to CC ~ Antibiotic Timeout Antibiotic Ordered?: Yes Subjective This is the hospitalist progress note on patients hospitalized at [facility]. The patient was visiting with his family he is alert and oriented and they were playing a card game. Objective Vital Signs Date Time Temp Pulse Resp B/P (MAP) Pulse Ox O2 Delivery O2 Flow Rate FiO2 10/08/24 08:00 96.8 92 16 114/67 (83) 92 10/08/24 07:00 Room Air Gen. No acute distress obtunded Lungs clear to ascultation bilaterally, no wheezes rales or rhonchi appreciated Heart normal sinus rhythm no murmurs rubs or clicks noted Abdomen soft nontender bowel sounds are normoactive Lower extremities no clubbing cyanosis, nor edema appreciated bilaterally Problem\Assessment\Plan Problems/Diagnosis: (1) Psychosis Grave disability History of bipolar disorder continue management as per the psychiatrist. Hypokalemia The patient's potassium was 3.3. Replaced potassium. Monitor the patient's electrolytes. Resolved Catatonia Resolved The patient is sitting up playing cards with his family The patient voiced no acute medical complaints or concerns and none were voiced by nursing staff either The hospitalist team we will continue to follow the patient during the course of hospitalization Date of Service: Oct 08, 2024 Billing Provider: MARISOL SHAFFER DO Common Visit Codes: [id number] INP/OBS CARE(MOD) Problem Qualifiers (1) Psychosis: MARISOL SHAFFER DO Oct 08, 2024 13:59
--- NOTE | 2024-10-08 14:01 | Visit Coding Note ---
Date of Service: Oct 08, 2024 Billing Provider: MARISOL SHAFFER DO Common Visit Codes: [id number] INP/OBS CARE(LOW) (The correct billing code is 231 for today's encounter- please disregard the two three to billing code) MARISOL SHAFFER DO Oct 08, 2024 14:01
--- NOTE | 2024-10-08 17:05 | PROGRESS NOTE ---
Progress Note Dictate Providers to CC ~ Progress Note: HPI: Admitted for grave disability not taking care of himself or meeting basic needs. losing weights on disability living with brother and mother in [place]. catatonic has been slowly resolving. history bipolar disorder Today on Assessment: Friendly, confused, oriented to self and location (in the hospital), not fully oriented to the situation, not oriented to date. Focused on wanting to discharge home. Psychiatric Medications: Risperidone 1.5 mg twice daily Lorazepam 0.25 mg twice daily Depakote 500 mg qhs paroxetine 30 mg HS Side Effects: Denies No evidence of TD, EPS AIMs: 0 Review of Psychiatric Symptoms: Mood: low, endorses depression Suicide/self-harm: denies Sleep: good (denies concerns) Appetite: hungry (eating three meals plus snacks) Energy: adequate, less time in bed Anxiety: up there r/t hallucinations Irritability: denies Homicidal/Anger: denies Hallucinations/Paranoia: endorses that he has been hallucinating- voices people fighting just outside of my door (state she cant tell who they are or what they are up to but its a physical altercation) Trauma symptoms: denies Symptoms related to substance withdrawal: denies Mental Status Evaluation General Appearance: street clothes, no apparent distress, appropriately groomed Eye contact: consistent with social norms Demeanor: cooperative, pleasant Orientation: to person, place, Speech: Appropriate rate/rhythm/volume Psychomotor Activity: within normal range Abnormal Body Movements: none observed Gait: steady Mood: good (euthymic) Affect: constricted Suicidality: denies suicidal ideation Homicidally: denies Thought content: delusional Thought process: goal-directed Thought perceptions: auditory hallucinations Memory: appears intact Attention: appear attentive Insight: fair Judgment: fair Current Medical Problems: Constipation- see medication list Medical History Cardiac HX: Denies TBI Hx: denies Seizure Hx: denies CRISTHIAN Hx: denies - - Diagnoses Catatonia, partially resolved Psychosis NOS Mood disorder - Assessment Remains confused, pleasant on assessment, AH endorsed today, Catatonia partially resolved. No changes to treatment plan indicated. Safety risk: low risk of imminent self-harm, low risk of externalized violent behaviors Plan Risperidone 1.5 mg twice daily Lorazepam 0.25 mg twice daily Depakote 500 mg qhs paroxetine 30 mg HS Continue Q15 min checks Continue Groups/Milieu Engagement Discharge Plan: TUESDAY to home with scheduled follow ups for outpatient therapy and medication Spent approximately 30 minutes reviewing records and test results, assessing and treatment planning, completing care coordination and documenting the encounter. Discussed risks, including possible adverse effects, and benefits of treatment recommendations including no treatment. Voice recognition software may have been used to dictate this note. There may be errors due to use of such software. Reporting of serious errors is appreciated. Antibiotic Ordered?: No Objective Vitals Vital Signs Date Time Temp Pulse Resp B/P (MAP) Pulse Ox O2 Delivery O2 Flow Rate FiO2 10/08/24 08:00 96.8 92 16 114/67 (83) 92 10/08/24 07:00 Room Air CODING VISIT-PSYCHIATRY Date of Service: Oct 08, 2024 Billing Provider: BOAZ BENNETT DNP Psych Common Visit Codes: [id number] INP/OBS CARE(Low) BOAZ BENNETT DNP Oct 08, 2024 17:05
[2024-10-08 19:10] VITALS: BP 123/77; PULSE 84; RESP 16; TEMP 97.3; O2SAT 98
[2024-10-08 20:00] VITALS: RESP 16; O2SAT 98
[2024-10-09 07:00] VITALS: RESP 16; O2SAT 96
[2024-10-09 08:00] VITALS: BP 127/69; PULSE 87; RESP 16; TEMP 97.9; O2SAT 96
--- NOTE | 2024-10-09 15:04 | PROGRESS NOTE ---
Progress Note Dictate Providers to CC ~ Central Line/PICC still needed: N\\A Antibiotic Ordered?: No MRSA Education MRSA Education Provided to pt: No Objective Vitals Vital Signs Date Time Temp Pulse Resp B/P (MAP) Pulse Ox O2 Delivery O2 Flow Rate FiO2 10/09/24 08:00 97.9 87 16 127/69 (88) 96 Room Air Problem\\Assessment\\Plan Problems/Diagnosis: (1) Psychosis (2) Mood disorder Psychiatrist's Progress Note Date of Service: Oct 09, 2024 Notes CHART REVIEW Pancho is admitted on a 5150 for GD after he was brought into the ED to be evaluated after experiencing experiencing confusion and has not been able to take care of his basic needs such as showering or eating because of this. Denny is unable to state where he could find or obtain food and has lost 8lbs in less than a week.Pancho is currently living with his brother and mother in [place]. Pancho is on disability and receives around $800.00 per month on SSI. The pt denies having a significant other or children. The pt has a doctor that he sees at [facility] and will f/u with that provider upon discharge. Spoke with Jean Paul, pt's brother, at the request of pt. Jean Paul states that the pt has a history of Bipolar d/o and has experienced a significant increase in mh sx since a medication change in July. Jean Paul states that his brother has basically been catatonic over the last couple of weeks and stopped eating about one week ago. Jean Paul is concerned that the pt may have an underlying health issue and that he was recently referred to for a neuro consult and MRI. Pt appears to have a positive support system and care team. Pt will have these supports as well upon discharge. The pt is a poor historian, this freelance copywriter was unable to obtain much information, however he does appreciate his brother, Jean Paul being able to share information and speak with staff about his symptoms. ASSESSMENT The patient was interviewed in observation room. The patient was actively sitting in rec room having a snack. The patient endorses "tired but I am okay." "Some how sleeping late waiting on my mother and my brother exhausted me." 'i am ready to go home." Am anxious about the way the future is going it is not a good time to watch TV all day." "TV shows show a lot of things that are important but you also have to watch because a lot of things are negative." The patient endorses no worsening mental health symptoms. Denies SI. Denies HI. Denies AVH. The patient is stable no acute distress noted. The patient presents confused, AND engaged in session. The patien has shown moderate improvement since admission. Per staff report patient is medication compliant. Per staff report no abnormal behaviors. Will continue daily assessment and adjusting treatment as needed. Closely monitor behavior and response to medication during hospitalization. Collateral from Jean Paul, patient's brother. Jean Paul endorses that the patient and his mom will be moving closer to him with in the next month so that he can more supportive to both the patient and his mom. Jean Paul agrees with the patient being discharged next Tuesday. Results Of any Diagn. Testing REVIEW OF LABS EXAM: DI ABDOMEN,SINGLE VIEW(KUB) HISTORY: Constipation COMPARISON: None TECHNIQUE: Supine view of the abdomen FINDINGS/IMPRESSION: Significant gas distention of the stomach. Correlate for gastroparesis. : MR MRI HEAD INDICATION: R/O neurologic issues TECHNIQUE: Multiplanar, multisequence imaging of the brain without contrast. COMPARISON: MR MRI HEAD on DOS: 09/26/24 FINDINGS: [PARENCHYMA]: No acute infarct or hemorrhage. No mass effect or herniation. T2/FLAIR hyperintensities, which are nonspecific however most likely represent chronic microvascular ischemic change. [VENTRICLES]: No hydrocephalus. [EXTRA-AXIAL SPACES]: No extra-axial fluid collections. [FLOW VOIDS]: The flow voids are intact. [EXTRA-CRANIAL STRUCTURES]: The bony structures are intact. Trace fluid in bilateral mastoid air cells. IMPRESSION: 1. No MR evidence of an acute intracranial abnormality. ALYSIS NEGATIVE COVID NEGATIVE URINE TOX SCREEN NEGATIVE WBC 4.8 RBC 4.28 HEMOGLOBIN 13.3 HEMATOCRIT 39.4 PLATELET COUNT 127 SODIUM 143 POTASSIUM 3.3 CHLORIDE 104 ANION GAP 7 BUN 7 CREATININE 0.92 eGFR 85 CALCIUM 89.2 ALBUMIN 3.1 TRIGLYCERIDES 71 CHOLESTEROL 155 HDL 52 LDL 81 Appearnace: Other Speech: Other (CIRCUMSTANTIAL) Eye Contact: Other (INTERMITTENT) Motor Activity: Normal Affect: Full Mood: Anxious Orientation Impairment: Place (KNEW HE WAS IN THE HOSPITAL), Time (UNABLE TO STATE THE MONTH) Attention: Normal Hallucinations: None Other: None Suicidality: None Homicidality: None Delusions: None Behavior: Cooperative Insight: Fair Judgment: Fair Treatment DEPAKOTE ER 500 MG P.O. Q.H.S. PAXIL 30 MG P.O. Q.H.S. TRAZODONE 50 MG P.O. Q.H.S. PRN BENZTROPINE 1 MG P.O. B.I.D. THORAZINE 50 MG P.O. Q.6 PRN BENADRYL 50 MG P.O. Q.6 PRN Increase RISPERIDONE 2MG P.O. B.I.D. Monitoring by Staff, Milieu, Group, and Individual counseling as needed -- According to the [place] Suicide Assessment the above named patient is on Q15 MINUTE CHECKS. [id number]-Patient is unable to formulate a plan to safely meet their basic needs of food, clothing, and fci due to the severity of their mental illness. We are still titrating medications to an effective dose while maintaining a therapeutic environment to prevent decompensation and readmission. Total time spent 40 minutes REVIEW OF Clinical notes [X ] RN notes [X] PCT documentation [X] SW notes Labs [ X] Medications [X] Care trends/care activity [X] Vitals [X] DISCUSSION WITH computer systems hardware analyst [X] Staff SW [X] Treatment Team [X] Discharge UNSURE AT THIS TIME. DISCHARGE BACK TO HOME TOMORROW CODING VISIT-PSYCHIATRY Date of Service: Oct 09, 2024 Billing Provider: HEMA SMITH APRN Psych Common Visit Codes: [id number] INP/OBS CARE(Low) Problem Qualifiers (1) Psychosis: HEMA SMITH APRN Oct 09, 2024 15:04
[2024-10-09 19:00] VITALS: BP 112/75; PULSE 85; RESP 20; TEMP 98.4; O2SAT 94
[2024-10-09 20:00] VITALS: RESP 20; O2SAT 94
[2024-10-10 07:00] VITALS: BP 105/55; PULSE 67; RESP 16; TEMP 97.4; O2SAT 97
[2024-10-10 08:00] VITALS: RESP 16; O2SAT 97
[2024-10-10 09:07] VITALS: BP 105/55; PULSE 67; RESP 16; TEMP 97.4; O2SAT 97
[2024-10-10] MEDS ORDERED: RISP-32 PO (09:53)
[2024-10-10] MEDS ORDERED: HYDR-3686 PO (09:53)
[2024-10-10] MEDS ORDERED: PARO30TA4 PO (09:53)
[2024-10-10] MEDS ORDERED: DIVA500T2 PO (09:53)
== END 2024-10-10 11:15 | disposition home or self-care (01) | DRG 751 ==
LOC: ADULT MH 15:58
PROVIDERS: ADMIT Psychiatry & Neurology Psychiatry; ATTEND Psychiatry & Neurology Psychiatry
PROC: GZHZZZZ Group Psychotherapy (ICD-10-PCS; principal; 2024-09-14)
PROC: GZ51ZZZ Individual Psychotherapy, Behavioral (ICD-10-PCS; 2024-09-14)
DX: F29 Unspecified psychosis not due to a substance or known physiological condition (principal); F06.1 Catatonic disorder due to known physiological condition; R45.851 Suicidal ideations; E87.6 Hypokalemia; F31.9 Bipolar disorder, unspecified; K59.00 Constipation, unspecified; F41.9 Anxiety disorder, unspecified; F20.9 Schizophrenia, unspecified; F39 Unspecified mood [affective] disorder; Z99.3 Dependence on wheelchair; Z88.1 Allergy status to other antibiotic agents
CPT/HCPCS: 36415; 70551; 74018; 80048; 80053; 80061; 80164; 82140; 82948; 83036; 84132; 84145; 85025; 85651; 87081; 93005; J2060; J2250; J3360; Q0161; Q0163; Q0177